=== PATIENT | female | born 1955 | race Caucasian/White ===

== ENCOUNTER → 2016-07-28 | Outpatient (CLI) | payer MEDICARE, MEDICAID ==
[2016-07-28 13:21] LABS: CALCIUM LEVEL 10.7 MG/DL (8.5-10.1); CREATININE FOR GFR 1.04 MG/DL (0.55-1.02); GLOMERULAR FILTRATION RATE 57.7 (>51); POTASSIUM SERUM 4.3 MEQ/L (3.5-5.1)
== END ==
LOC: M LAB 11:51
PROVIDERS: ATTEND Nurse Practitioner Family
DX: E11.9 Type 2 diabetes mellitus without complications (principal); E55.9 Vitamin D deficiency, unspecified

== ENCOUNTER → 2016-08-11 | Outpatient (REF) | payer MEDICARE, MEDICAID | LOC: M LAB REF 16:48 | PROVIDERS: ATTEND Nurse Practitioner Family | DX: N39.0 Urinary tract infection, site not specified (principal) ==

== ENCOUNTER → 2016-11-21 | Outpatient (CLI) | payer MEDICARE, MEDICAID ==
[2016-11-21 18:35] LABS: CALCIUM LEVEL 9.3 MG/DL (8.5-10.1); CREATININE FOR GFR 1.02 MG/DL (0.55-1.02); POTASSIUM SERUM 4.4 MEQ/L (3.5-5.1)
== END ==
LOC: M SMT 13:53
PROVIDERS: ATTEND Nurse Practitioner Family
DX: E11.9 Type 2 diabetes mellitus without complications (principal)

== ENCOUNTER 2017-03-01 20:30 | Emergency (ER) | payer MEDICARE, MEDICAID ==
[~2017-03-01] VITALS: Ht 154.9 cm; Wt 85.5 kg
[2017-03-01 20:31] VITALS: BP 182/84
[2017-03-01] MEDS ORDERED: FURO20TA2 PO (21:17)
[2017-03-01] MEDS ORDERED: LANTINJ4 (21:17)
[2017-03-01] MEDS ORDERED: CRES40TA PO (21:17)
[2017-03-01] MEDS ORDERED: METF10004 (21:17)
[2017-03-01] MEDS ORDERED: LISI40TAB PO (21:17)
[2017-03-01] MEDS ORDERED: LATA5OPD OU (21:17)
[2017-03-01] MEDS ORDERED: MACR100C43 PO (23:56)
[2017-03-01] MEDS ORDERED: PYRI1TAB5 PO (23:56)
[2017-03-02] MEDS ORDERED: NITROFURANTOIN (MACROBID) 100 MG CAP PO ONE
[2017-03-02] MEDS ORDERED: PHENAZOPYRIDINE 100 MG TAB PO ONE
== END 2017-03-02 00:11 | disposition home or self-care (01) ==
LOC: M ED 20:30
DX: N30.90 Cystitis, unspecified without hematuria (principal); F17.200 Nicotine dependence, unspecified, uncomplicated; E78.00 Pure hypercholesterolemia, unspecified; I10 Essential (primary) hypertension; Z87.440 Personal history of urinary (tract) infections; E11.9 Type 2 diabetes mellitus without complications; M19.90 Unspecified osteoarthritis, unspecified site; Z79.84 Long term (current) use of oral hypoglycemic drugs; Z79.899 Other long term (current) drug therapy; Z88.8 Allergy status to other drugs, medicaments and biological substances

== ENCOUNTER 2017-03-10 21:07 | Emergency (ER) | payer MEDICARE, MEDICAID ==
[~2017-03-10] VITALS: Ht 154.9 cm; Wt 85.5 kg
[~2017-03-10 21:07] MED LIST: CRES40TA PO; FURO20TA2 PO; LANTINJ4; LATA5OPD OU; LISI40TAB PO; MACR100C43 PO; METF10004; PYRI1TAB5 PO
[2017-03-11 03:47] VITALS: BP 136/74
[2017-03-11] MEDS ORDERED: CYCLOBENZAPRINE 10 MG TAB PO ONE (04:00)
[2017-03-11] MEDS ORDERED: NAPROXEN 250 MG TAB PO ONE (04:00)
[2017-03-11] MEDS ORDERED: CYCL10TA PO (04:03)
[2017-03-11] MEDS ORDERED: NAPR500T PO (04:03)
[2017-03-11] MEDS ORDERED: NORCO 5/325MG TABLET (BULK FOR ED) PO ONE (04:15)
--- NOTE | 2017-03-11 08:39 | REP ---
Bilateral ribs and PA chest: Bilateral ribs four views: There are no rib fractures or other rib abnormalities. PA chest: Comparison is 07/08/2006. There is no pneumothorax, hemothorax or pulmonary contusion. Lung mims are clear. Cardiac size is normal. The pedrito, mediastinum, and bony thorax are unremarkable. Impression: Negative PA chest. There is no interval change. Signed by rBian Carrasco MD 03/11/2017 08:31 A
--- NOTE | 2017-03-11 08:42 | REP ---
Lumbar spine series: Five views. History: Trauma. Comparison study: March 27, 2005. Findings: Lumbar vertebral body heights are preserved. Alignment is normal. Pedicles and posterior elements are intact. There is no evidence of spondylolysis or spondylolisthesis. There is spondylosis however with diffuse degenerative disc disease radiographically more pronounced than on the 2005 prior study. There is osteoarthritic facet narrowing and sclerosis most pronounced at L5-S1 and L4-5 bilaterally. This is also more pronounced than on the prior study. Sacrum and SI joints are intact. Visualized bowel gas pattern is unremarkable. Impression: Diffuse degenerative disc disease. Osteoarthritic facet disease at L4-5 and L5-S1. Radiographically progressed since 2004. No fracture or subluxation is seen. No traumatic abnormality noted. Signed by Robert Whittington MD 03/11/2017 09:32 A
--- NOTE | 2017-03-11 08:46 | REP ---
T-spine series: Two views. Findings: Thoracic vertebral body heights are preserved and alignment is normal. There is fairly diffuse degenerative disc disease throughout the thoracic spine. Pedicles and posterior elements are intact. No paravertebral soft-tissue mass or hematoma is seen. No fracture or collapse is seen. Impression: No traumatic abnormality noted. Diffuse degenerative disc disease. Signed by Robert Whittington MD 03/11/2017 09:33 A
== END 2017-03-11 04:15 | disposition home or self-care (01) ==
LOC: M ED 21:07
DX: M54.5 Low back pain (principal); I10 Essential (primary) hypertension; F17.210 Nicotine dependence, cigarettes, uncomplicated; Z79.899 Other long term (current) drug therapy; Z79.4 Long term (current) use of insulin; Z79.84 Long term (current) use of oral hypoglycemic drugs; Z88.8 Allergy status to other drugs, medicaments and biological substances

== ENCOUNTER 2017-03-18 13:18 | Inpatient (IN) | payer MEDICARE, MEDICAID ==
[2017-03-18] VITALS (16 sets, daily range): BP systolic 75–121; BP diastolic 39–59
[~2017-03-18] VITALS: Ht 154.9 cm; Wt 83.4 kg
[~2017-03-18 13:18] MED LIST changes: +CYCL10TA PO; +NAPR500T PO
[2017-03-18] MEDS ORDERED: CLAR10CA3 PO (13:33)
[2017-03-18] MEDS ORDERED: HUMA100I5 (13:33)
[2017-03-18] MEDS ORDERED: COLA100C5 PO (13:33)
[2017-03-18] MEDS ORDERED: AMLO10TA PO (13:33)
[2017-03-18] MEDS ORDERED: ADACEL/BOOSTRIX VACCINE (DIPHTH/PERTUSS/ACELL/TETANUS)0.5ML SYR (90715) IM ONE (14:00)
[2017-03-18] MEDS ORDERED: NS 1,000 ML IV ONE ×5 (14:00→20:00)
[2017-03-18 14:04] LABS: BASO % 0.2 % (0.0-1.0); IMMATURE GRANULOCYTE % 1.1 % (0-0); LYMPH # 2.3 10^3/uL (1.5-4.5); LYMPH % 10.4 % (24.0-44.0); MEAN CORPUSCULAR HEMOGLOBIN 27.1 pg (27.0-33.0); MEAN CORPUSCULAR HGB CONC 33.8 g/dl (32.0-36.5); MEAN CORPUSCULAR VOLUME 80.2 fl (80.0-96.0); MONO # 1.5 10^3/uL (0.0-0.8); MONO % 6.8 % (0.0-5.0); NEUTROPHILS # 17.8 10^3/uL (1.8-7.7); NEUTROPHILS % 81.5 % (36.0-66.0); PLATELET COUNT, AUTOMATED 468 10^3/uL (150-450); RED CELL DISTRIBUTION WIDTH 13.2 % (11.5-14.5); WHITE BLOOD COUNT 21.8 10^3/uL (4.0-10.0)
--- NOTE | 2017-03-18 14:15 | REP ---
Chest one-view HISTORY: Syncope Comparison: 03/11/2017 The lungs are clear. The heart is normal in size. The pulmonary vasculature is normal in appearance. Impression: No acute disease. Signed by Conrado Hester MD 03/18/2017 02:05 P
[2017-03-18 14:21] LABS: INR 1.09
[2017-03-18 14:23] LABS: ABG BASE EXCESS 18.5 (-2.0-2.0); ABG HCO3 41.7 MEQ/L (22.0-26.0); ABG PARTIAL PRESSURE O2 73.5 mmHg (75.0-100.0); ABG STANDARD HCO3 42.6 MEQ/L (22.0-26.0)
[2017-03-18 14:24] LABS: ALBUMIN 2.6 GM/DL (3.2-5.2); ALBUMIN/GLOBULIN RATIO 0.68 (1.00-1.93); BILIRUBIN,DIRECT 0.1 MG/DL (0.0-0.2); BILIRUBIN,TOTAL 0.5 MG/DL (0.2-1.0); CALCIUM LEVEL 8.9 MG/DL (8.5-10.1); CREATININE FOR GFR 3.95 MG/DL (0.55-1.02); FREE T4 1.97 NG/DL (0.76-1.46); GLOMERULAR FILTRATION RATE 12.4 (>51); MAGNESIUM LEVEL 2.1 MG/DL (1.8-2.4); POTASSIUM SERUM 3.4 MEQ/L (3.5-5.1); TOTAL PROTEIN 6.4 GM/DL (6.4-8.2)
[2017-03-18 14:25] LABS: ABG pH (ARTERIAL) 7.615 UNITS (7.350-7.450)
[2017-03-18] MEDS ORDERED: VANCOMYCIN HCL 1,000 MG, VIAL MATE ADAPTER 1 EACH in D5W 250 ML IV ONE (14:30)
[2017-03-18] MEDS ORDERED: PIPERACILLIN/TAZOBACTAM SOD 4.5 GM in D5W 50 ML IV ONE (14:30)
[2017-03-18] MEDS ORDERED: HYDROCORTISONE 100 MG/2 ML VIAL (J1720) IV ONE (14:30)
--- NOTE | 2017-03-18 15:19 | REP ---
CT Head without contrast HISTORY: Syncope COMPARISON: None There is no intraparenchymal hemorrhage, acute infarct, mass or midline shift. The ventricular system and cortical sulci as well as subarachnoid space in the posterior fossa are dilated consistent with minimal volume loss. There is no extra cerebral collection. There is no fracture. The visualized sinuses are clear. IMPRESSION: minimal volume loss. Signed by Conrado Hester MD 03/18/2017 03:10 P
[2017-03-18] MEDS ORDERED: NS 1,000 ML IV SCH (15:32)
--- NOTE | 2017-03-18 15:35 | REP ---
CT abdomen pelvis without IV or bowel contrast: There are no comparisons. The visualized lung mims are unremarkable. The unenhanced hepatic parenchyma, gallbladder, pancreas and spleen are unremarkable. The adrenals, kidneys and abdominal aorta are unremarkable except for calcified atheroma. 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 Depending on symptomatology, a CT angiogram of the aorta might be considered. There is no bowel distension or obstruction. There is no ascites. There is no pneumoperitoneum. Pelvis: There is a Singh catheter in the bladder and the bladder is collapsed and cannot be further evaluated. The uterus is tilted to the left but otherwise unremarkable. The adnexa are unremarkable. The pelvic bowel loops are unremarkable. There are soft tissue calcifications in the subcutaneous fat posterior to the sacrum of uncertain significance, possibly sequela from prior inflammation or infection. 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 Depending on symptomatology consider CT angiogram. There are soft tissue calcifications in the subcutaneous fat posterior to the sacrum, possibly from prior inflammation or infection. There is a Singh catheter in the bladder. Otherwise, negative CT of the abdomen and pelvis. Signed by Brian Carrasco MD 03/18/2017 03:23 P
[2017-03-18] MEDS ORDERED: GLUCOSE 4 GM CHEW TABLET PO PRN (15:45)
[2017-03-18] MEDS ORDERED: ACETAMINOPHEN TAB 650MG DOSE (2X325MG) PO PRN (15:45)
[2017-03-18] MEDS ORDERED: GLUCAGON FOR INJ 1 MG VIAL (J1610) SC PRN (15:45)
[2017-03-18] MEDS ORDERED: ONDANSETRON 4MG/2ML VIAL (J2405) IV PRN (15:45)
[2017-03-18] MEDS ORDERED: DEXTROSE 50% 50 ML SYRINGE IV PRN (15:45)
--- NOTE | 2017-03-18 15:52 | HPEPDOC ---
General Date of Admission Chief Complaint The patient is a 61-year-old female Presented to the ER with complaints of dizziness for 2-3 days and progressed to a fall today. History of Present Illness Patient is a 61 year old female with a PMHx of HTN, IDDM2, DLP and chronic lower back pain who presented to the ER with complaints of dizziness for 2-3 days that progressed to a fall. Patient has noted that over the last 1 week she has been experiencing nausea and vomiting. She describes the vomitus as dark colored, without evidence of blood. She has also had dysuria initially and was on antibiotics prescribed by her PCP. Today duke day number 6 of antibiotics. She denied any chest pain, palpitations, or shortness of breath. She does note a productive cough with clear sputum for the last 7 days as well. She denies any constipation, diarrhea or abdominal pain. She denies any fever or chills. She notes a poor appetite with decreased intake over the last 1 week because of the nausea and vomiting. Home Medications Scheduled Aspirin (Aspirin) 325 Mg Tab, 162.5 MG PO DAILY, (Reported) Docusate Sodium (Colace) 100 Mg Cap, 200 MG PO QHS, (Reported) Furosemide (Furosemide) 20 Mg Tab, 20 MG PO QPM, (Reported) Insulin Glargine (Lantus) 1 Units/0.01 Ml Susp, 30 UNITS SC DAILY, (Reported) Latanoprost (Latanoprost) 50 Drop/2.5 Ml Soln, 1 DROP OU QHS, (Reported) Lisinopril (Lisinopril) 40 Mg Tab, 40 MG PO DAILY, (Reported) Loratadine (Claritin) 10 Mg Cap, 10 MG PO DAILY, (Reported) Metformin Hydrochloride (Metformin HCl) 500 Mg Tab, 500 MG PO BID, (Reported) Rosuvastatin Calcium (Crestor) 40 Mg Tab, 40 MG PO QHS, (Reported) Allergies Coded Allergies: Nitrofurantoin (Verified Adverse Reaction, Unknown, 03/10/17) vomiting Past Medical History Medical History HTN, IDDM2, DLP and Chronic lower back pain Surgical History None reported Family History - Mother from [place] - Father with history of sleeping sickness Social History - Denies the use of alcohol or illicit drugs; Smoker of >45 years at 1p - Denies recent travel or sick contacts - Lives with brothers - Occupation; currently disabled, 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 Review of Symptoms Other systems Negative otherwise stated in HPI Vital Signs - Vitals: BP 95/51, HR 89, RR 16, Sat 91%RA, Temp 97.8F - General: Lying in bed, No acute distress, Speaking in full sentences, AAOx3 - HEENT: NC, AT, PERRLA, EOMI - CVS: RRR, +S1S2 - Lungs: Fair air entry bilaterally, Clear to auscultation, No wheezing / rales / rhonchi - Abdomen: Soft, Non-distended, Non-tender, Hypoactive bowel sounds - Extremities: No lower extremity edema, No calf tenderness - Neuro: No focal motor or sensory deficit - Skin: No visible rashes Laboratory Data Labs 24H Laboratory Tests 2 03/18/17 13:48: Immature Granulocyte % (Auto) 1.1H, White Blood Count 21.8H, Red Blood Count 4.20, Hemoglobin 11.4L, Hematocrit 33.7L, Mean Corpuscular Volume 80.2, Mean Corpuscular Hemoglobin 27.1, Mean Corpuscular Hemoglobin Concent 33.8, Red Cell Distribution Width 13.2, Platelet Count 468H, Neutrophils (%) (Auto) 81.5H, Lymphocytes (%) (Auto) 10.4L, Monocytes (%) (Auto) 6.8H, Eosinophils (%) (Auto) 0.0, Basophils (%) (Auto) 0.2, Neutrophils # (Auto) 17.8H, Lymphocytes # (Auto) 2.3, Monocytes # (Auto) 1.5H, Eosinophils # (Auto) 0.0, Basophils # (Auto) 0.0, Immature Granulocyte # (Auto) 0.2H, Nucleated Red Blood Cells % (auto) 0.0, Prothrombin Time 14.3, Prothromb Time International Ratio 1.09, Activated Partial Thromboplast Time 28.6, D-Dimer, Quantitative 2891.0H, Anion Gap 15, Glomerular Filtration Rate 12.4L, Lactic Acid Level 7.8*H, Calcium Level 8.9, Magnesium Level 2.1, Aspartate Amino Transf (AST/SGOT) 26, Alanine Aminotransferase (ALT/SGPT) 23, Alkaline Phosphatase 83, Total Bilirubin 0.5, Direct Bilirubin 0.1, Total Creatine Kinase 270H, Creatine Kinase MB 4.3H, Creatine Kinase MB Relative Index 1.59, Troponin I 0.13H, C-Reactive Protein, Quantitative 6.67H, Total Protein 6.4, Albumin 2.6L, Albumin/Globulin Ratio 0.68L, Amylase Level 40, Thyroid Stimulating Hormone (TSH) 1.090, Free Thyroxine 1.97H 03/18/17 14:05: Blood Gas Bicarbonate Standard 42.6H, Arterial Blood pH 7.615*H, Arterial Blood Partial Pressure CO2 42.0, Arterial Blood Partial Pressure O2 73.5L, Arterial Blood Total CO2 43.0H, Arterial Blood HCO3 41.7H, Arterial Blood Base Excess 18.5H, Arterial Blood Oxygen Saturation 95.6 03/18/17 15:05: Urine Appearance CLOUDYH, Urine Color SHIRLEY, Urine pH 5.0, Urine Specific Richards 1.020, Urine Protein 2+H, Urine Glucose (UA) 1+H, Urine Ketones TRACEH, Urine Urobilinogen 4.0H, Urine Bilirubin NEGATIVE, Urine Leukocyte Esterase TRACEH, Urine Blood 2+H, Urine Nitrite NEGATIVE, Urine WBC (Auto) 17H, Urine RBC (Auto) 7H, Urine Hyaline Casts (Auto) 54, Urine Bacteria (Auto) 2+H, Urine Squamous Epithelial Cells 4, Urine Amorphous Sediment SMALLH, Urine Mucus (Auto ) SMALL, Urine Sperm (Auto) CBC/BMP Laboratory Tests 03/18/17 13:48 Red Blood Count 4.20, Mean Corpuscular Volume 80.2, Mean Corpuscular Hemoglobin 27.1, Mean Corpuscular Hemoglobin Concent 33.8, Red Cell Distribution Width 13.2 , Neutrophils (%) (Auto) 81.5 H, Lymphocytes (%) (Auto) 10.4 L, Monocytes (%) ( Auto) 6.8 H, Eosinophils (%) (Auto) 0.0, Basophils (%) (Auto) 0.2, Neutrophils # (Auto) 17.8 H, Lymphocytes # (Auto) 2.3, Monocytes # (Auto) 1.5 H, Eosinophils # (Auto) 0.0, Basophils # (Auto) 0.0 Microbiology Microbiology 03/18/17 Blood Culture, Received Pending 03/18/17 Blood Culture, Received Pending 03/18/17 Influenza Virus Type A Antigen - Final, Complete 03/18/17 Influenza Virus Type B Antigen - Final, Complete 03/18/17 Urine Culture, Received Pending Plan / VTE VTE Prophylaxis Ordered?: Yes Plan / Urinary Catheter Reason for insertion/continuin: Critical Pt monitoring Plan Plan Hypotension possibly 2/2 hypovolemic shock, possibly 2/2 septic shock, possibly 2/2 medications - Presented with nausea and vomiting x 7 days duration - Denies any fever or chills at home, does note dysuria initially and productive cough - Has been on antibiotics as an outpatient - Physical reveals no acute findings; remains afebrile - UA with trace LE and no nitrites, 2+ bacteria - Labs reveal metabolic alkalosis (hypochloremic) 2/2 nausea and vomiting - CXR 03/18: No acute disease - CT head 03/18: no acute pathology - s/p Vancomycin and Zosyn in ER - Has been bloused with 3 liters of NS in ER - Will c/w Vancomycin and Zosyn for now - Will re-evaluate blood pressure and determine if central line is required; case was discussed by ER physician with Dr. Moran Fall at home - likely 2/2 hypotension - Denies any LOC - Imaging negative for fracture Acute kidney injury likely 2/2 pre-renal etiology 2/2 hypovolemia, possibly 2/ 2 intra-renal etiology, less likely post-renal etiology - Cr of 3.95 - Prior level of 1.02 on 11/21/16 - Will check urine electrolytes and renal US - c/w IV fluid hydration Lactic acidosis likely 2/2 hypotension - Lactic acid level of 7.8 - Will follow up lactic acid at 4 hour camille - Will c/w IV fluid hydration Metabolic alkalosis (Hypochloremic) - likely 2/2 nausea and vomiting - Will continue to follow Elevated troponin - likely 2/2 demand ischemia - Denies chest pain, SOB, or palpitations - EKG with T wave inversions in V2, no appreciable ST segment deviations - Mild elevation at 0.13 - Will trend for additional 2 sets Hyponatremia - likely 2/2 hypotonic hypovolemic - Will check serum osmolality and fractional excretion of sodium - c/w Fluid resuscitation with NS for blood pressure - Will get stat CMP at this time to follow level Hypokalemia - Will supplement HTN - Will hold BP medications at this time IDDM2 - c/w ISS - Will c/w Levemir at 20 units, reduced from 30 units of Lantus DLP - c/w Statin Chronic lower back pain - c/w Tylenol PRN Gastrointestinal prophylaxis - Will start protonix IV DVT prophylaxis - Will start Heparin EMILIE LANG MD Mar 18, 2017 15:52
[2017-03-18] MEDS ORDERED: POTASSIUM CHLORIDE 10 MEQ SR TABLET PO ONE ×3 (16:00→21:30)
[2017-03-18] MEDS ORDERED: VANCOMYCIN HCL 1,000 MG, VIAL MATE ADAPTER 1 EACH in D5W 250 ML IV SCH (16:00)
[2017-03-18] MEDS ORDERED: INSULANT SC (16:01)
[2017-03-18] MEDS ORDERED: METF500T13 PO (16:01)
[2017-03-18] MEDS ORDERED: ASPI325T PO (16:01)
--- NOTE | 2017-03-18 16:10 | REP ---
RIGHT HUMERUS, TWO VIEWS: HISTORY: Fall. There is no acute fracture or dislocation. There is narrowing of the acromioclavicular joint with associated osteophyte formation. IMPRESSION: There is no acute fracture or dislocation. Signed by Conrado Hester MD 03/18/2017 04:15 P
[2017-03-18 16:47] LABS: OSMOLALITY SERUM 289 MOSM/KG (275-295)
[2017-03-18 16:54] LABS: ALBUMIN 2.3 GM/DL (3.2-5.2); ALBUMIN/GLOBULIN RATIO 0.62 (1.00-1.93); BILIRUBIN,TOTAL 0.4 MG/DL (0.2-1.0); CREATININE FOR GFR 3.55 MG/DL (0.55-1.02)
--- NOTE | 2017-03-18 17:05 | ECGEPIP ---
Stationary ECG Study [facility] - ED Test Date: 2017-03-18 Pat Name: GARRETT KC Department: Room: - Gender: F Hr Specialist: : [id number] Requested By: Fermin Wolfe Order Number: [id number] Reading MD: Richy Doan Measurements Intervals [place] Rate: 90 P: -17 AK: 137 QRS: 54 QRSD: 89 T: 44 QT: 399 QTc: 488 Interpretive Statements SINUS RHYTHM POSSIBLE LEFT ATRIAL ENLARGEMENT POSSIBLE INFERIOR MYOCARDIAL INFARCTION, PROBABLY OLD MODERATE T-WAVE ABNORMALITY, CONSIDER ANTERIOR ISCHEMIA NO PRIORS Electronically Signed On 03-18-2017 17:05:31 EDT by Richy Doan
[2017-03-18 17:14] LABS: POTASSIUM SERUM 2.7 MEQ/L (3.5-5.1)
[2017-03-18] MEDS ORDERED: VANCOMYCIN INTERMITTENT/PULSE DOSING BY CLINICAL PHARMACIST PER DOSING PROTOCOL XX SCH (17:15)
[2017-03-18] MEDS ORDERED: HumaLOG INSULIN (NovoLOG) PER UNIT SC SCH ×2 (17:30→21:00)
[2017-03-18] MEDS: PANTOPRAZOLE 40MG INJ (PROTONIX) (C9113) IV SCH (17:35)
[2017-03-18] MEDS: KCL 40MEQ in NS 1000ML 1,000 ML IV SCH (17:35)
--- NOTE | 2017-03-18 18:33 | PHACANCOPD ---
PHARMACY VANCOMYCIN DOSING Pt Demographics Demographics Patient Age:61 , Weight:79.600 , Gender: female Adjusted Body Weight Date: 03/18/17, Adjusted Body Weight: Kg Events Past 24 Hours Events Past 24 Hours: YES: Change in CrCl, Elevation in WBC, NO: Dialysis, Diuretic Therapy, Fever, Pending Diagnostics, Pending Procedures, Other Vancomycin Vancomycin indication: SEPSIS MRSA COVERAGE Vancomycin Target Ranges: 15-20 mcg/ml Vancomycin Load Y/N: Yes Load Dose Date Time Vancomycin Load Dose: 1G Date: 03/18/17 Time: 1730 Vancomycin Dose Date: 03/18/17. Current Vancomycin Dose: Intermittent Dosing?: Yes Labs Labs Vital Signs Label Value Date Time Patient Temperature 98.4 degrees F 03/18/17 1611 Temperature Source Temporal 03/18/17 1611 Patient Temperature 98.7 degrees F 03/18/17 1638 Temperature Source Temporal 03/18/17 1638 Item Value Date Time White Blood Count 21.8 10^3/uL H 03/18/17 1348 Lactic Acid Level 7.8 MMOL/L *H 03/18/17 1348 Creatinine 3.95 MG/DL H 03/18/17 1348 Creatinine 3.55 MG/DL H 03/18/17 1608 Micro Microbiology 03/18/17 Blood Culture, Received Pending 03/18/17 Blood Culture, Received Pending 03/18/17 Influenza Virus Type A Antigen - Final, Complete 03/18/17 Influenza Virus Type B Antigen - Final, Complete 03/18/17 Urine Culture, Received Pending Creatinine Clearance Date:03/18/17. Creatinine Clearance: . Assessment and Plan Maintaining Current Dose?: Yes Reason for dose change: No Dose Change Pharmacist Note Pharmacist Note Date: 03/18/17. Pharmacist note: Pt. is a 61 year old female who presented to the ER with complaints of dizziness for 2-3 days that progressed to a fall as well as nausea and vomiting. Patient is currently in acute renal failure with Scr elevated at 3.55. Her baseline Scr is around 0.9-1. Patient was given 1G Vanco at ~1730. I have scheduled a random vanco level at 1500 tomorrow. We will continue to monitor and adjust dose as patient's kidney function improves. [facility] Mar 18, 2017 18:33
[2017-03-18] MEDS ORDERED: LR 1,000 ML IV ONE (20:00)
[2017-03-18] MEDS: ROSUVASTATIN 10 MG TAB (CRESTOR) PO SCH (21:17)
[2017-03-18] MEDS: DOCUSATE SODIUM 100 MG CAP PO SCH (21:17)
[2017-03-18] MEDS: HEPARIN SOD (PORCINE) 5000 UNITS/ML VIAL SC SCH (21:18)
[2017-03-18] MEDS: PIPERACILLIN/TAZOBACTAM SOD 3.375 GM in D5W 50 ML IV SCH (21:18)
[2017-03-18 21:58] LABS: CALCIUM LEVEL 7.8 MG/DL (8.5-10.1); CREATININE FOR GFR 3.15 MG/DL (0.55-1.02); GLOMERULAR FILTRATION RATE 16.1 (>51); MAGNESIUM LEVEL 2.1 MG/DL (1.8-2.4); POTASSIUM SERUM 3.1 MEQ/L (3.5-5.1)
--- NOTE | 2017-03-18 22:10 | REPUSA ---
Clinical history: hypoxia. Comparison: None. Findings: The mediastinum and cardiac silhouette are within normal limits. The lungs are clear. No pl eural effusion or pneumothorax is seen. The osseous structures and soft tissues are unremarkable. Impression: No acute disease.
[2017-03-19] VITALS (17 sets, daily range): BP systolic 101–161; BP diastolic 49–72
[2017-03-19 02:49] LABS: ABG BASE EXCESS 11.6 (-2.0-2.0); ABG PARTIAL PRESSURE CO2 46.3 mmHg (35.0-45.0); ABG PARTIAL PRESSURE O2 83.4 mmHg (75.0-100.0); ABG STANDARD HCO3 35.3 MEQ/L (22.0-26.0); ABG TOTAL CO2 37.4 MEQ/L (22.0-29.0); ABG pH (ARTERIAL) 7.508 UNITS (7.350-7.450)
[2017-03-19] MEDS: KCL 40MEQ in NS 1000ML 1,000 ML IV SCH ×2 (03:46→08:11)
[2017-03-19] MEDS: PIPERACILLIN/TAZOBACTAM SOD 3.375 GM in D5W 50 ML IV SCH ×4 (03:47→20:30)
[2017-03-19 05:18] LABS: BASO % 0.1 % (0.0-1.0); IMMATURE GRANULOCYTE % 0.6 % (0-0); LYMPH # 1.9 10^3/uL (1.5-4.5); LYMPH % 9.5 % (24.0-44.0); MEAN CORPUSCULAR HEMOGLOBIN 27.7 pg (27.0-33.0); MEAN CORPUSCULAR HGB CONC 33.7 g/dl (32.0-36.5); MEAN CORPUSCULAR VOLUME 82.4 fl (80.0-96.0); MONO # 1.2 10^3/uL (0.0-0.8); NEUTROPHILS % 83.8 % (36.0-66.0); PLATELET COUNT, AUTOMATED 397 10^3/uL (150-450); RED CELL DISTRIBUTION WIDTH 13.5 % (11.5-14.5); WHITE BLOOD COUNT 20.3 10^3/uL (4.0-10.0)
[2017-03-19 05:41] LABS: ALBUMIN 2.3 GM/DL (3.2-5.2); ALBUMIN/GLOBULIN RATIO 0.77 (1.00-1.93); BILIRUBIN,TOTAL 0.5 MG/DL (0.2-1.0); CALCIUM LEVEL 8.1 MG/DL (8.5-10.1); CREATININE FOR GFR 2.68 MG/DL (0.55-1.02); GLOMERULAR FILTRATION RATE 19.4 (>51); MAGNESIUM LEVEL 2.3 MG/DL (1.8-2.4); POTASSIUM SERUM 3.3 MEQ/L (3.5-5.1); TOTAL PROTEIN 5.3 GM/DL (6.4-8.2)
[2017-03-19] MEDS ORDERED: HumaLOG INSULIN (NovoLOG) PER UNIT SC SCH (06:00)
[2017-03-19] MEDS: HEPARIN SOD (PORCINE) 5000 UNITS/ML VIAL SC SCH ×3 (06:34→20:29)
[2017-03-19] MEDS ORDERED: POTASSIUM CHLORIDE 10 MEQ SR TABLET PO ONE ×2 (07:30)
[2017-03-19] MEDS ORDERED: DEXTROSE 50% 50 ML SYRINGE IV PRN ×2 (07:45→12:30)
[2017-03-19] MEDS ORDERED: GLUCOSE 4 GM CHEW TABLET PO PRN ×2 (07:45→12:30)
[2017-03-19] MEDS ORDERED: GLUCAGON FOR INJ 1 MG VIAL (J1610) SC PRN ×2 (07:45→12:30)
[2017-03-19] MEDS: ASPIRIN 325 MG TAB PO SCH (08:23)
[2017-03-19] MEDS: LEVEMIR (INSULIN DETEMIR) 1 UNITS/0.01ML SC SCH (08:24)
[2017-03-19] MEDS: HumaLOG INSULIN (NovoLOG) PER UNIT SC SCH ×3 (13:30→20:39)
[2017-03-19] MEDS ORDERED: SLF 3 ML SYR IV PRN (14:00)
[2017-03-19 15:24] LABS: CALCIUM LEVEL 8.2 MG/DL (8.5-10.1); CREATININE FOR GFR 2.29 MG/DL (0.55-1.02); GLOMERULAR FILTRATION RATE 23.2 (>51); POTASSIUM SERUM 4.4 MEQ/L (3.5-5.1)
--- NOTE | 2017-03-19 15:34 | IPNPDOC ---
Date Seen The patient was seen on 03/19/17. Progress Note Hospitalist Progress Note Subjective: Patient states that she is feeling much better and is hungry Objective: Physical Exam: Vitals: Vital Sign - Last 24 Hours 03/18/17 03/18/17 03/18/17 03/18/17 15:45 15:48 15:51 16:03 Pulse 92 90 B/P (MAP) 96/54 (68) 102/54 (70) Pulse Ox 94 95 03/18/17 03/18/17 03/18/17 03/18/17 16:10 16:11 16:38 18:30 Temp 98.4 98.7 Pulse 90 97 84 Resp 16 20 B/P (MAP) 110/58 (75) 101/50 (67) 121/59 (79) 91/47 (62) Pulse Ox 93 90 O2 Delivery Nasal Cannula Nasal Cannula O2 Flow Rate 2.0 3.0 03/18/17 03/18/17 03/18/17 03/18/17 19:00 19:02 19:18 19:30 Temp 98.5 Pulse 79 80 92 80 Resp 18 B/P (MAP) 75/39 (51) 82/44 (57) 116/56 (76) 76/40 (52) Pulse Ox 91 O2 Delivery Nasal Cannula O2 Flow Rate 3.0 03/18/17 03/18/17 03/18/17 03/18/17 19:37 19:47 20:00 20:00 Temp 98.5 Pulse 80 80 85 Resp 18 B/P (MAP) 80/42 (55) 90/51 (64) 87/46 (60) Pulse Ox 91 O2 Delivery Nasal Cannula Nasal Cannula O2 Flow Rate 4.0 3.0 03/18/17 03/18/17 03/18/17 03/18/17 20:30 21:00 21:26 22:00 Pulse 80 95 107 94 Resp 22 24 B/P (MAP) 86/46 (59) 110/51 (70) 113/53 (73) 121/53 (75) Pulse Ox 93 89 99 O2 Delivery Nasal Cannula Nasal Cannula Nasal Cannula Non-Rebreather O2 Flow Rate 4.0 4.0 5.0 03/18/17 03/18/17 03/18/17 03/19/17 22:30 23:00 23:30 00:00 Pulse 89 83 96 Resp 20 B/P (MAP) 93/44 (60) 89/49 (62) 102/51 (68) Pulse Ox 96 95 82 O2 Delivery Non-Rebreather Venturi Mask Venturi Mask Venturi Mask FiO2 50 50 50 03/19/17 03/19/17 03/19/17 03/19/17 00:00 00:30 01:00 02:00 Temp 99.8 Pulse 82 81 83 94 Resp 22 20 22 B/P (MAP) 101/49 (66) 102/50 (67) 102/54 (70) 115/55 (75) Pulse Ox 91 95 95 91 O2 Delivery Venturi Mask Venturi Mask Venturi Mask Venturi Mask FiO2 50 50 40 50 03/19/17 03/19/17 03/19/17 03/19/17 03:00 03:30 04:00 04:00 Temp 99.0 Pulse 94 86 90 Resp 20 24 20 B/P (MAP) 135/64 (87) 125/67 (86) 131/60 (83) Pulse Ox 94 92 89 O2 Delivery Venturi Mask Venturi Mask Venturi Mask Venturi Mask FiO2 50 40 40 40 03/19/17 03/19/17 03/19/17 03/19/17 05:00 06:00 07:00 08:00 Temp 98.9 Pulse 82 82 83 83 Resp 22 20 24 B/P (MAP) 135/63 (87) 129/63 (85) 148/69 (95) 156/72 (100) Pulse Ox 94 95 95 96 O2 Delivery Venturi Mask Venturi Mask Venturi Mask Venturi Mask FiO2 40 40 40 40 03/19/17 03/19/17 03/19/17 03/19/17 08:00 09:00 10:00 11:00 Pulse 82 84 75 Resp 20 B/P (MAP) 157/70 (99) 141/66 (91) 134/63 (86) Pulse Ox 94 96 96 O2 Delivery Venturi Mask Venturi Mask Nasal Cannula Nasal Cannula O2 Flow Rate 3.0 3.0 FiO2 40 40 03/19/17 03/19/17 12:00 12:00 Temp 99.2 Pulse 82 Resp 22 B/P (MAP) 124/60 (81) Pulse Ox 90 O2 Delivery Nasal Cannula Nasal Cannula O2 Flow Rate 3.0 3.0 General: Awake, alert, no acute distress HEENT: Normal cephalic, atraumatic, extraocular movements intact CV: Regular rate and rhythm Lungs: Clear to auscultation bilaterally Abd: Soft, tender to palpation in the umbilicus and epigastrium, no rebound or guarding Extremities: No edema Neuro: Alert and oriented 3, normal speech Psych: Normal mood and affect Labs and Imaging: Laboratory Tests 03/18/17 16:08 Calcium Level 8.0 L, Aspartate Amino Transf (AST/SGOT) 22, Alanine Aminotransferase (ALT/SGPT) 20, Alkaline Phosphatase 71, Total Bilirubin 0.4, Total Protein 6.0 L, Albumin 2.3 L 03/18/17 21:06 Calcium Level 7.8 L, Total Creatine Kinase 347 H 03/19/17 05:04 Calcium Level 8.1 L, Aspartate Amino Transf (AST/SGOT) 31, Alanine Aminotransferase (ALT/SGPT) 21, Alkaline Phosphatase 69, Total Bilirubin 0.5, Total Protein 5.3 L, Albumin 2.3 L, Red Blood Count 3.75 L, Mean Corpuscular Volume 82.4, Mean Corpuscular Hemoglobin 27.7, Mean Corpuscular Hemoglobin Concent 33.7, Red Cell Distribution Width 13.5, Neutrophils (%) (Auto) 83.8 H, Lymphocytes (%) (Auto) 9.5 L, Monocytes (%) (Auto) 6.0 H, Eosinophils (%) (Auto ) 0.0, Basophils (%) (Auto) 0.1, Neutrophils # (Auto) 17.0 H, Lymphocytes # ( Auto) 1.9, Monocytes # (Auto) 1.2 H, Eosinophils # (Auto) 0.0, Basophils # (Auto ) 0.0 03/19/17 14:44 Calcium Level 8.2 L Assessment and Plan: 61-year-old female with hypertension, diabetes mellitus type 2, hyperlipidemia, chronic low back pain who presented to the emergency department with dizziness, vomiting, and a fall. She is admitted with hypovolemic shock, metabolic alkalosis, hyponatremia, acute kidney injury. 1. Hypovolemic shock: Now mostly resolved. Patient's blood pressure has recovered. I believe this is secondary to her vomiting. Continue IV fluids. 2. Non-anion gap Metabolic alkalosis: Secondary to dehydration and contraction. Now resolving. Continue to monitor. Continue IV fluids. 3. Leukocytosis: WBC upon presentation was 21.8. I suspect this is a combination of volume contraction as well as a reactive process. The patient has been afebrile, and I do not believe that she currently has an infection. However, given the severity of her presentation, we will continue vancomycin and Zosyn until all cultures have resulted out. Urine culture is currently negative, but blood cultures are still pending. 4. Hyponatremia: Secondary to volume depletion. This is improving, we will continue to follow sodiums and continue IV fluids. 5. Acute kidney injury: This is secondary to hypovolemic shock: Creatinine upon presentation was 3.95. This has now improved to 2.29, and we will continue IV fluids. Holding home SEGRE inhibitor, Lasix, and metformin. 6. Elevated d-dimer: This could be secondary to a variety of her above mentioned issues, but given that she does report some shortness of breath, we will check a bilateral lower extremity Doppler, as well as a VQ scan to rule out any VTE. Unfortunately, given her kidney function, we cannot conduct a CTA of the chest. 7. Elevated troponin: The patient does not endorse any chest pain, and her EKG does not show evidence of acute infarct or ischemia. However, her troponin has been mildly elevated up to 0.15, and now downtrending. I suspect that this is secondary to strain from the hypovolemic shock. We will continue to monitor the patient closely for any development of chest pain. 8. Vomiting: This has now resolved. The patient is hungry and would like to eat. We will start her on a clear diet and advance her slowly. 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 Unfortunately, given the patient's kidney function, we cannot get a CTA at this time. The patient does report to me that she has been having vomiting on and off for 2 months, and this is accompanied by abdominal pain that is worse after she eats. I'm suspicious for chronic mesenteric ischemia, and I will consult vascular surgery for further evaluation. I do not believe that she has any acute ischemia or bowel, as she clinically is currently very well-appearing, does not have any rebound or guarding on her exam , and a repeat lactate was normal. LFTs are within normal limits. 9. Hypertension: Given the initial hypovolemic shock, we are currently holding the patient's home Lasix and SERGE inhibitor. 10. Diabetes mellitus type 2: Continue the patient's home long-acting insulin. She usually takes 30 units daily, but given that she is currently on only a clears diet, we have cut her back to 20 units daily. Sliding scale insulin while in-house. Currently holding home metformin. 11. Hyperlipidemia: Continue home statin. DVT prophylaxis: Heparin; also, given that the patient is critically ill, she has IV Protonix for GI prophylaxis Dispo: pending improvement in kidney function, results of cultures, and evaluation by vascular surgery VS, I&O, 24H, [facility] Vital Signs/I&O Vital Signs Date Time Temp Pulse Resp B/P (MAP) Pulse Ox O2 Delivery O2 Flow Rate FiO2 03/19/17 12:00 Nasal Cannula 3.0 03/19/17 12:00 99.2 82 22 124/60 (81) 90 03/19/17 09:00 40 I&O- Last 24 Hours up to 6 AM 03/20/17 05:59 Intake Total 1540 ml Output Total 1250 ml Balance 290 ml Laboratory Data 24H LABS Laboratory Tests 2 03/18/17 16:08: Anion Gap 10, Glomerular Filtration Rate 14.0L, Osmolality 289, Blood Urea Nitrogen 57H, Creatinine 3.55H, Sodium Level 130L, Potassium Level 2.7#*L, Chloride Level 79L, Carbon Dioxide Level 41H, Calcium Level 8.0L, Aspartate Amino Transf (AST/SGOT) 22, Alanine Aminotransferase (ALT/SGPT) 20, Alkaline Phosphatase 71, Total Bilirubin 0.4, Total Protein 6.0L, Albumin 2.3L, Total Creatine Kinase 366H, Creatine Kinase MB 7.8H, Creatine Kinase MB Relative Index 2.13, Troponin I 0.15H, Albumin/Globulin Ratio 0.62L 03/18/17 18:08: Lactic Acid Followup at 4 Hours 1.9 03/18/17 21:06: Anion Gap 9, Glomerular Filtration Rate 16.1L, Blood Urea Nitrogen 60H, Creatinine 3.15H, Sodium Level 130L, Potassium Level 3.1L, Chloride Level 83L, Carbon Dioxide Level 38H, Calcium Level 7.8L, Total Creatine Kinase 347H, Creatine Kinase MB 6.5H, Creatine Kinase MB Relative Index 1.87, Troponin I 0.13H, Bedside Glucose (Misc Panel) 154H, Lactic Acid Level 2.0, Magnesium Level 2.1 03/19/17 02:36: Blood Gas Bicarbonate Standard 35.3H, Arterial Blood pH 7.508H, Arterial Blood Partial Pressure CO2 46.3H, Arterial Blood Partial Pressure O2 83.4, Arterial Blood Total CO2 37.4H, Arterial Blood HCO3 36.0H, Arterial Blood Base Excess 11.6H, Arterial Blood Oxygen Saturation 96.0 03/19/17 05:04: Immature Granulocyte % (Auto) 0.6H, White Blood Count 20.3H, Red Blood Count 3.75L, Hemoglobin 10.4L, Hematocrit 30.9L, Mean Corpuscular Volume 82.4, Mean Corpuscular Hemoglobin 27.7, Mean Corpuscular Hemoglobin Concent 33.7, Red Cell Distribution Width 13.5, Platelet Count 397, Neutrophils (%) (Auto) 83.8H, Lymphocytes (%) (Auto) 9.5L, Monocytes (%) (Auto) 6.0H, Eosinophils (%) (Auto) 0.0, Basophils (%) (Auto) 0.1, Neutrophils # (Auto) 17.0H, Lymphocytes # (Auto) 1.9, Monocytes # (Auto) 1.2H, Eosinophils # (Auto) 0.0, Basophils # (Auto) 0.0, Immature Granulocyte # (Auto) 0.1H, Nucleated Red Blood Cells % (auto) 0.0, Anion Gap 10, Glomerular Filtration Rate 19.4L, Blood Urea Nitrogen 53H, Creatinine 2.68H, Sodium Level 133L, Potassium Level 3.3L, Chloride Level 88L, Carbon Dioxide Level 35H, Calcium Level 8.1L, Aspartate Amino Transf (AST/SGOT) 31, Alanine Aminotransferase (ALT/SGPT) 21, Alkaline Phosphatase 69, Total Bilirubin 0.5, Total Protein 5.3L, Albumin 2.3L, Magnesium Level 2.3, Total Creatine Kinase 364H, Creatine Kinase MB 5.6H, Creatine Kinase MB Relative Index 1.53, Troponin I 0.15H, Albumin/Globulin Ratio 0.77L 03/19/17 12:13: Bedside Glucose (Misc Panel) 123H 03/19/17 14:44: Anion Gap 6L, Glomerular Filtration Rate 23.2L, Blood Urea Nitrogen 40H, Creatinine 2.29H, Sodium Level 136, Potassium Level 4.4#, Chloride Level 98, Carbon Dioxide Level 32, Calcium Level 8.2L, Total Creatine Kinase 274H, Creatine Kinase MB 4.1H, Creatine Kinase MB Relative Index 1.49, Troponin I 0.10 #, Myoglobin 262H, Random Vancomycin Level 8.0 CBC/BMP Laboratory Tests 03/18/17 16:08 Calcium Level 8.0 L, Aspartate Amino Transf (AST/SGOT) 22, Alanine Aminotransferase (ALT/SGPT) 20, Alkaline Phosphatase 71, Total Bilirubin 0.4, Total Protein 6.0 L, Albumin 2.3 L 03/18/17 21:06 Calcium Level 7.8 L, Total Creatine Kinase 347 H 03/19/17 05:04 Calcium Level 8.1 L, Aspartate Amino Transf (AST/SGOT) 31, Alanine Aminotransferase (ALT/SGPT) 21, Alkaline Phosphatase 69, Total Bilirubin 0.5, Total Protein 5.3 L, Albumin 2.3 L, Red Blood Count 3.75 L, Mean Corpuscular Volume 82.4, Mean Corpuscular Hemoglobin 27.7, Mean Corpuscular Hemoglobin Concent 33.7, Red Cell Distribution Width 13.5, Neutrophils (%) (Auto) 83.8 H, Lymphocytes (%) (Auto) 9.5 L, Monocytes (%) (Auto) 6.0 H, Eosinophils (%) (Auto ) 0.0, Basophils (%) (Auto) 0.1, Neutrophils # (Auto) 17.0 H, Lymphocytes # ( Auto) 1.9, Monocytes # (Auto) 1.2 H, Eosinophils # (Auto) 0.0, Basophils # (Auto ) 0.0 03/19/17 14:44 Calcium Level 8.2 L Microbiology Microbiology 03/18/17 Blood Culture - Preliminary, Resulted No growth after 24 hours . All specim... 03/18/17 Blood Culture - Preliminary, Resulted No growth after 24 hours . All specim... 03/18/17 Influenza Virus Type A Antigen - Final, Complete 03/18/17 Influenza Virus Type B Antigen - Final, Complete 03/18/17 Urine Culture - Final, Complete 03/18/17 Urine Culture, Received Pending YO HYATT Mar 19, 2017 15:34
--- NOTE | 2017-03-19 15:39 | REP ---
Ventilation-perfusion lung scan: History: Elevated D-dimer. Shortness of breath. Comparison chest x-ray is from March 18, 2017. Technique: 1.0 mCi technetium 99m DTPA aerosol is utilized for the ventilation study and is followed by a 5.4 mCi dose of intravenous technetium 99m MAA. Eight planar images are acquired for each portion of the study. Scintigraphic findings: There is central bronchial deposition of inspired ventilatory tracer in the right hilus region. There is virtually absent ventilatory tracer uptake in any of the left lung. There is markedly impaired, but globally impaired perfusion to the left lung. There is a matched ventilation perfusion defect in the right lung anteriorly. No mismatched defect is seen. Impression: Globally diminished ventilatory and perfusion activity in the left lung. Matched right lung defect. Low probability pattern for pulmonary embolus. Question bronchial obstruction versus malignancy. Chest CT study recommended. Signed by Robert Whittington MD 03/19/2017 05:13 P
[2017-03-19] MEDS ORDERED: VANCOMYCIN HCL 1,000 MG, VIAL MATE ADAPTER 1 EACH in D5W 250 ML IV SCH (15:45)
[2017-03-19] MEDS ORDERED: VANCOMYCIN HCL 1,000 MG, VIAL MATE ADAPTER 1 EACH in D5W 250 ML IV ONE (16:00)
[2017-03-19] MEDS: SLF 3 ML SYR IV SCH ×2 (16:56→20:30)
[2017-03-19] MEDS: NS 1,000 ML IV SCH (16:56)
--- NOTE | 2017-03-19 16:58 | REP ---
Renal ultrasound: The kidneys are normal size. The right kidney measures 12.5 x 7.8 x 4.9 cm. The left kidney measures 11.2 x 5.5 x 5.4 cm. Renal cortical echogenicity is normal bilaterally. There is no hydronephrosis on the right or the left. There are no solid or cystic renal masses. There are no renal calculi. Impression: Normal renal ultrasound. There is no hydronephrosis. Bladder ultrasound: There is a Singh catheter in the bladder is collapsed and cannot be evaluated by ultrasound at this time. Signed by Brian Carrasco MD 03/19/2017 04:49 P
[2017-03-19] MEDS: PANTOPRAZOLE 40MG INJ (PROTONIX) (C9113) IV SCH (17:10)
--- NOTE | 2017-03-19 17:22 | REP ---
Duplex extremity venous ultrasound: Bilateral lower extremity. History: Elevated D-dimer. Findings: The deep veins are anechoic and fully compressible from the groin to the popliteal fossa in the right and left lower extremity. Color flow imaging is homogeneous. Spectral Doppler interrogation demonstrates intact respiratory variation in flow and normal manual augmentation of flow. There is no evidence of deep vein thrombosis. Impression: Negative bilateral lower extremity duplex venous ultrasound. No evidence of deep vein thrombosis. 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 Each of these measures 4.9 cm in greatest diameter. Signed by Robert Whittington MD 03/20/2017 02:37 P
[2017-03-19] MEDS: DOCUSATE SODIUM 100 MG CAP PO SCH (20:29)
[2017-03-19] MEDS: ROSUVASTATIN 10 MG TAB (CRESTOR) PO SCH (20:29)
--- NOTE | 2017-03-19 22:45 | ECHO ---
DATE OF PROCEDURE: 03/19/2017 REFERRING PHYSICIAN: Aguilar Lama MD INDICATION: Sepsis. HEIGHT: 155 cm WEIGHT: 85 kg DIMENSIONS: IVS: 1.1 LV: 3.5 LVPW: 1.1 LA: 3.4 Aorta: 2.9 FINDINGS: The study is of acceptable technical quality. Left ventricle is of normal size and systolic function, estimated left ventricular ejection fraction (LVEF) 70-75%. Right ventricle also appears normal. Both atria appear grossly normal as well. Aortic valve is mildly sclerotic, but has normal mobility. It has three cusps. There are also mild degenerative abnormalities of mitral valve. Tricuspid valve appears normal. Pulmonic valve was poorly visualized. No pericardial effusion is noted. Inferior vena cava is normal size. Aortic root appears normal. Aortic arch and abdominal aorta were not well seen. There is left pleural effusion. Doppler interrogation of aortic valve reveals no significant stenosis or insufficiency. There is also no significant mitral stenosis or insufficiency. Mild tricuspid insufficiency seen. Calculated pulmonary artery pressure is at least in high 40s corresponding to at minimum moderate pulmonary hypertension. Pulmonic valve is functionally competent. Mitral inflow pattern and tissue Doppler imaging of mitral annulus reveal grade 1 diastolic dysfunction. CONCLUSION: 1. Study is of acceptable technical quality. 2. Normal LV size, hyperdynamic LV systolic function and grade 1 diastolic dysfunction. 3. No significant valvular disease. 4. Likely normal central venous pressure, but at least moderate pulmonary hypertension. COMMENT: Subacute bacterial endocarditis (SBE) prophylaxis is not recommended.
[2017-03-20] VITALS (9 sets, daily range): BP systolic 124–173; BP diastolic 60–77
[2017-03-20] MEDS: PIPERACILLIN/TAZOBACTAM SOD 3.375 GM in D5W 50 ML IV SCH ×4 (02:03→21:14)
[2017-03-20] MEDS: NS 1,000 ML IV SCH ×2 (04:02→13:32)
[2017-03-20 04:58] LABS: BASO % 0.2 % (0.0-1.0); EOS # 0.1 10^3/uL (0.0-0.50); EOS % 0.7 % (0.0-3.0); IMMATURE GRANULOCYTE % 0.6 % (0-0); LYMPH % 20.1 % (24.0-44.0); MEAN CORPUSCULAR HEMOGLOBIN 26.8 pg (27.0-33.0); MEAN CORPUSCULAR HGB CONC 31.4 g/dl (32.0-36.5); MEAN CORPUSCULAR VOLUME 85.3 fl (80.0-96.0); MONO % 6.7 % (0.0-5.0); NEUTROPHILS # 10.7 10^3/uL (1.8-7.7); NEUTROPHILS % 71.7 % (36.0-66.0); PLATELET COUNT, AUTOMATED 377 10^3/uL (150-450); RED CELL DISTRIBUTION WIDTH 13.5 % (11.5-14.5)
[2017-03-20] MEDS: SLF 3 ML SYR IV SCH ×3 (05:14→21:13)
[2017-03-20] MEDS: HEPARIN SOD (PORCINE) 5000 UNITS/ML VIAL SC SCH ×3 (05:18→21:14)
[2017-03-20 05:25] LABS: ALBUMIN 2.1 GM/DL (3.2-5.2); ALBUMIN/GLOBULIN RATIO 0.53 (1.00-1.93); BILIRUBIN,TOTAL 0.3 MG/DL (0.2-1.0); CALCIUM LEVEL 8.1 MG/DL (8.5-10.1); CREATININE FOR GFR 1.62 MG/DL (0.55-1.02); GLOMERULAR FILTRATION RATE 34.6 (>51); MAGNESIUM LEVEL 2.1 MG/DL (1.8-2.4); POTASSIUM SERUM 4.6 MEQ/L (3.5-5.1); TOTAL PROTEIN 6.1 GM/DL (6.4-8.2)
[2017-03-20] MEDS: ASPIRIN 325 MG TAB PO SCH (08:13)
[2017-03-20] MEDS: HumaLOG INSULIN (NovoLOG) PER UNIT SC SCH ×4 (08:14→20:30)
[2017-03-20] MEDS: LEVEMIR (INSULIN DETEMIR) 1 UNITS/0.01ML SC SCH (08:14)
--- NOTE | 2017-03-20 14:34 | REP ---
REPEAT DICTATION RIGHT SHOULDER SERIES: Two views. HISTORY: Injury in a fall. FINDINGS: Internal and external rotation AP views of the right shoulder demonstrate advanced diffuse osteopenia. There is osteoarthritic hypertrophy at the AC joint. Normal alignment is seen. No fracture is noted. There is mild glenohumeral spurring. IMPRESSION: No fracture noted. Osteoarthritic changes and diffuse osteopenia. Signed by Robert Whittington MD 03/20/2017 03:15 P
--- NOTE | 2017-03-20 14:35 | IPNPDOC ---
Date Seen The patient was seen on 03/20/17. Progress Note Hospitalist Progress Note Subjective: Patient states that she is feeling much better and is hungry; she still has pain in her abd after eating the clears Objective: Physical Exam: Vitals: Vital Sign - Last 24 Hours 03/19/17 03/19/17 03/19/17 03/19/17 16:51 17:14 20:00 20:00 Temp 99.1 98.4 Pulse 87 90 Resp 20 29 B/P (MAP) 159/65 (96) 161/69 (99) Pulse Ox 91 96 O2 Delivery Nasal Cannula Nasal Cannula Nasal Cannula Nasal Cannula O2 Flow Rate 3.0 3.0 3.0 3.0 03/19/17 03/20/17 03/20/17 03/20/17 22:00 00:00 00:00 04:00 Temp 98.2 98.0 Pulse 86 85 Resp 28 30 B/P (MAP) 145/66 (92) 140/73 (95) Pulse Ox 97 96 O2 Delivery Nasal Cannula Nasal Cannula Nasal Cannula Nasal Cannula O2 Flow Rate 3.0 3.0 3.0 3.0 03/20/17 03/20/17 03/20/17 03/20/17 04:00 06:00 07:30 07:45 Pulse Ox 97 O2 Delivery Nasal Cannula Nasal Cannula Nasal Cannula Nasal Cannula O2 Flow Rate 3.0 3.0 3.0 2.0 03/20/17 03/20/17 03/20/17 03/20/17 07:45 07:48 08:13 10:00 Temp 97.3 Pulse 96 Resp 26 24 B/P (MAP) 173/75 (107) 138/75 (96) Pulse Ox 87 91 O2 Delivery Room Air Nasal Cannula Room Air O2 Flow Rate 2.0 03/20/17 03/20/17 03/20/17 10:15 11:46 12:00 Temp 98.1 Pulse 80 Resp 22 B/P (MAP) 124/60 (81) Pulse Ox 94 95 O2 Delivery Room Air Room Air Room Air General: Awake, alert, no acute distress HEENT: Normal cephalic, atraumatic, extraocular movements intact CV: Regular rate and rhythm Lungs: Clear to auscultation bilaterally Abd: Soft, tender to palpation in the umbilicus and epigastrium, no rebound or guarding Extremities: No edema in BLE; RUE with intact radial pulse, 5/5 distal fish net maker strength but decreased ability to lift against gravity Neuro: Alert and oriented 3, normal speech Psych: Normal mood and affect Labs and Imaging: Laboratory Tests 03/19/17 14:44 Calcium Level 8.2 L 03/20/17 04:44 Calcium Level 8.1 L, Red Blood Count 3.88 L, Mean Corpuscular Volume 85.3, Mean Corpuscular Hemoglobin 26.8 L, Mean Corpuscular Hemoglobin Concent 31.4 L, Red Cell Distribution Width 13.5, Neutrophils (%) (Auto) 71.7 H, Lymphocytes (%) ( Auto) 20.1 L, Monocytes (%) (Auto) 6.7 H, Eosinophils (%) (Auto) 0.7, Basophils (%) (Auto) 0.2, Neutrophils # (Auto) 10.7 H, Lymphocytes # (Auto) 3.0, Monocytes # (Auto) 1.0 H, Eosinophils # (Auto) 0.1, Basophils # (Auto) 0.0, Aspartate Amino Transf (AST/SGOT) 19, Alanine Aminotransferase (ALT/SGPT) 20, Alkaline Phosphatase 71, Total Bilirubin 0.3, Total Protein 6.1 L, Albumin 2.1 L Assessment and Plan: 61-year-old female with hypertension, diabetes mellitus type 2, hyperlipidemia, chronic low back pain who presented to the emergency department with dizziness, vomiting, and a fall. She is admitted with hypovolemic shock, metabolic alkalosis, hyponatremia, acute kidney injury. 1. Hypovolemic shock: Now resolved. Patient's blood pressure has recovered. I believe this is secondary to her vomiting. Continue IV fluids. 2. Non-anion gap Metabolic alkalosis: Secondary to dehydration and contraction. Now resolved. Continue to monitor. Continue IV fluids. 3. Leukocytosis: WBC upon presentation was 21.8. I suspect this is a combination of volume contraction as well as a reactive process. The patient has been afebrile, and I do not believe that she currently has an infection. However, given the severity of her presentation, we will continue vancomycin and Zosyn until all cultures have resulted out. Urine culture is currently negative, but blood cultures are still pending. 4. Hyponatremia: Secondary to volume depletion. This is resolved. 5. Acute kidney injury: This is secondary to hypovolemic shock: Creatinine upon presentation was 3.95. This has now improved to 1.62, and we will continue IV fluids. Holding home SERGE inhibitor, Lasix, and metformin. 6. Elevated d-dimer: This could be secondary to a variety of her above mentioned issues, but given that she reported some shortness of breath, we checked a bilateral lower extremity Doppler, which was negative for DVT, as well as a VQ scan, which was negative for PE. Unfortunately, given her kidney function, we cannot conduct a CTA of the chest. 7. Elevated troponin: The patient does not endorse any chest pain, and her EKG does not show evidence of acute infarct or ischemia. However, her troponin was mildly elevated up to 0.15, and now downtrending. I suspect that this is secondary to strain from the hypovolemic shock. We will continue to monitor the patient closely for any development of chest pain. 8. Vomiting: This has now resolved. The patient is hungry and would like to eat. We will advance her diet. 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 Unfortunately, given the patient's kidney function, we cannot get a CTA at this time. The patient does report to me that she has been having vomiting on and off for 2 months, and this is accompanied by abdominal pain that is worse after she eats. I'm suspicious for chronic mesenteric ischemia, and I consulted vascular surgery for further evaluation. They are planning for angiogram in the angiosuite on Thursday. I do not believe that she has any acute ischemia or bowel, as she clinically is currently very well-appearing, does not have any rebound or guarding on her exam, and a repeat lactate was normal. LFTs are within normal limits. 9. Hypertension: Given the initial hypovolemic shock, we are currently holding the patient's home Lasix and SERGE inhibitor. 10. Diabetes mellitus type 2: Continue the patient's home long-acting insulin. She usually takes 30 units daily, but given that we are advancing her up to a normal diet, we have cut her back to 20 units daily. Sliding scale insulin while in-house. Currently holding home metformin. 11. Hyperlipidemia: Continue home statin. 12. Right shoulder pain: Present after patient fell. Reading of shoulder film still pending. Spoke to radiology who will ensure this gets read. 13. Abnormal finding on V/Q scan: While there is low probability for PE, there is concern for obstruction or malignancy. When her kidneys have improved a bit more, will assess with CT Chest with contrast. DVT prophylaxis: Heparin Dispo: pending improvement in kidney function, results of cultures, and evaluation by vascular surgery VS, I&O, 24H, Fishbone Vital Signs/I&O Vital Signs Date Time Temp Pulse Resp B/P (MAP) Pulse Ox O2 Delivery O2 Flow Rate FiO2 03/20/17 12:00 Room Air 03/20/17 11:46 98.1 80 22 124/60 (81) 95 03/20/17 07:48 2.0 03/19/17 09:00 40 I&O- Last 24 Hours up to 6 AM 03/21/17 06:00 Intake Total 1175 ml Output Total 550 ml Balance 625 ml Laboratory Data 24H LABS Laboratory Tests 2 03/19/17 14:44: Anion Gap 6L, Glomerular Filtration Rate 23.2L, Blood Urea Nitrogen 40H, Creatinine 2.29H, Sodium Level 136, Potassium Level 4.4#, Chloride Level 98, Carbon Dioxide Level 32, Calcium Level 8.2L, Total Creatine Kinase 274H, Creatine Kinase MB 4.1H, Creatine Kinase MB Relative Index 1.49, Myoglobin 262H , Troponin I 0.10#, Random Vancomycin Level 8.0 03/19/17 17:05: Bedside Glucose (Misc Panel) 128H 03/19/17 20:39: Bedside Glucose (Misc Panel) 183H 03/20/17 04:44: Anion Gap 6L, Glomerular Filtration Rate 34.6L, Blood Urea Nitrogen 24H, Creatinine 1.62H, Sodium Level 135L, Potassium Level 4.6, Chloride Level 104, Carbon Dioxide Level 25, Calcium Level 8.1L, Immature Granulocyte % (Auto) 0.6H , White Blood Count 15.0H, Red Blood Count 3.88L, Hemoglobin 10.4L, Hematocrit 33.1L, Mean Corpuscular Volume 85.3, Mean Corpuscular Hemoglobin 26.8L, Mean Corpuscular Hemoglobin Concent 31.4L, Red Cell Distribution Width 13.5, Platelet Count 377, Neutrophils (%) (Auto) 71.7H, Lymphocytes (%) (Auto) 20.1L, Monocytes (%) (Auto) 6.7H, Eosinophils (%) (Auto) 0.7, Basophils (%) (Auto) 0.2 , Neutrophils # (Auto) 10.7H, Lymphocytes # (Auto) 3.0, Monocytes # (Auto) 1.0H , Eosinophils # (Auto) 0.1, Basophils # (Auto) 0.0, Immature Granulocyte # (Auto ) 0.1H, Nucleated Red Blood Cells % (auto) 0.0, Aspartate Amino Transf (AST/SGOT ) 19, Alanine Aminotransferase (ALT/SGPT) 20, Alkaline Phosphatase 71, Total Bilirubin 0.3, Total Protein 6.1L, Albumin 2.1L, Magnesium Level 2.1, Albumin/ Globulin Ratio 0.53L 03/20/17 12:03: Bedside Glucose (Misc Panel) 160H CBC/BMP Laboratory Tests 03/19/17 14:44 Calcium Level 8.2 L 03/20/17 04:44 Calcium Level 8.1 L, Red Blood Count 3.88 L, Mean Corpuscular Volume 85.3, Mean Corpuscular Hemoglobin 26.8 L, Mean Corpuscular Hemoglobin Concent 31.4 L, Red Cell Distribution Width 13.5, Neutrophils (%) (Auto) 71.7 H, Lymphocytes (%) ( Auto) 20.1 L, Monocytes (%) (Auto) 6.7 H, Eosinophils (%) (Auto) 0.7, Basophils (%) (Auto) 0.2, Neutrophils # (Auto) 10.7 H, Lymphocytes # (Auto) 3.0, Monocytes # (Auto) 1.0 H, Eosinophils # (Auto) 0.1, Basophils # (Auto) 0.0, Aspartate Amino Transf (AST/SGOT) 19, Alanine Aminotransferase (ALT/SGPT) 20, Alkaline Phosphatase 71, Total Bilirubin 0.3, Total Protein 6.1 L, Albumin 2.1 L Microbiology Microbiology 03/18/17 Blood Culture - Preliminary, Resulted No growth after 24 hours . All specim... 03/18/17 Blood Culture - Preliminary, Resulted No growth after 24 hours . All specim... 03/18/17 Influenza Virus Type A Antigen - Final, Complete 03/18/17 Influenza Virus Type B Antigen - Final, Complete 03/18/17 Urine Culture - Final, Complete 03/18/17 Urine Culture - Final, Complete YO HYATT Mar 20, 2017 14:35
[2017-03-20] MEDS: PANTOPRAZOLE 40MG INJ (PROTONIX) (C9113) IV SCH (17:29)
[2017-03-20] MEDS: ROSUVASTATIN 10 MG TAB (CRESTOR) PO SCH (21:14)
[2017-03-20] MEDS: DOCUSATE SODIUM 100 MG CAP PO SCH (21:15)
[2017-03-21] MEDS: PIPERACILLIN/TAZOBACTAM SOD 3.375 GM in D5W 50 ML IV SCH (03:36)
[2017-03-21] MEDS: NS 1,000 ML IV SCH (03:37)
[2017-03-21 05:00] VITALS: BP 145/84
[2017-03-21 05:55] LABS: BASO # 0.1 10^3/uL (0.0-0.2); BASO % 0.4 % (0.0-1.0); EOS # 0.1 10^3/uL (0.0-0.50); EOS % 0.4 % (0.0-3.0); IMMATURE GRANULOCYTE % 0.6 % (0-0); LYMPH # 2.6 10^3/uL (1.5-4.5); LYMPH % 20.6 % (24.0-44.0); MEAN CORPUSCULAR HEMOGLOBIN 27.3 pg (27.0-33.0); MEAN CORPUSCULAR VOLUME 85.2 fl (80.0-96.0); MONO # 0.8 10^3/uL (0.0-0.8); MONO % 6.4 % (0.0-5.0); NEUTROPHILS # 9.1 10^3/uL (1.8-7.7); NEUTROPHILS % 71.6 % (36.0-66.0); PLATELET COUNT, AUTOMATED 353 10^3/uL (150-450); RED CELL DISTRIBUTION WIDTH 13.3 % (11.5-14.5); WHITE BLOOD COUNT 12.7 10^3/uL (4.0-10.0)
[2017-03-21] MEDS: SLF 3 ML SYR IV SCH ×3 (06:00→21:40)
[2017-03-21] MEDS: HEPARIN SOD (PORCINE) 5000 UNITS/ML VIAL SC SCH ×3 (06:13→21:39)
[2017-03-21 06:18] LABS: ALBUMIN 2.1 GM/DL (3.2-5.2); ALBUMIN/GLOBULIN RATIO 0.54 (1.00-1.93); BILIRUBIN,TOTAL 0.3 MG/DL (0.2-1.0); CALCIUM LEVEL 8.2 MG/DL (8.5-10.1); CREATININE FOR GFR 1.31 MG/DL (0.55-1.02); GLOMERULAR FILTRATION RATE 44.2 (>51); MAGNESIUM LEVEL 1.9 MG/DL (1.8-2.4); POTASSIUM SERUM 4.5 MEQ/L (3.5-5.1)
[2017-03-21] MEDS: HumaLOG INSULIN (NovoLOG) PER UNIT SC SCH ×4 (07:30→21:00)
[2017-03-21] MEDS: ASPIRIN 325 MG TAB PO SCH (08:23)
[2017-03-21] MEDS: LEVEMIR (INSULIN DETEMIR) 1 UNITS/0.01ML SC SCH (09:00)
[2017-03-21 14:00] VITALS: BP 112/62
--- NOTE | 2017-03-21 14:20 | IPNPDOC ---
Date Seen The patient was seen on 03/21/17. Progress Note Hospitalist Progress Note Subjective: Patient states that she is doing well with her diet; no vomiting; continues to have pain in right shoulder and cannot lift that arm without using her left hand Objective: Physical Exam: Vitals: Vital Sign - Last 24 Hours 03/20/17 03/20/17 03/20/17 03/20/17 16:00 16:00 17:00 17:15 Temp 98.1 97.1 Pulse 82 91 Resp 20 20 B/P (MAP) 128/61 (83) 157/77 (103) Pulse Ox 93 93 O2 Delivery Room Air Room Air Room Air 03/20/17 03/20/17 03/21/17 19:45 21:15 05:00 Temp 97.0 97.3 Pulse 79 79 Resp 18 18 B/P (MAP) 141/76 (97) 145/84 (104) Pulse Ox 96 94 O2 Delivery Room Air Room Air Room Air General: Awake, alert, no acute distress HEENT: Normal cephalic, atraumatic, extraocular movements intact CV: Regular rate and rhythm Lungs: Clear to auscultation bilaterally Abd: Soft, no TTP, no rebound or guarding Extremities: No edema in BLE; RUE with intact radial pulse, 5/5 distal scientific director strength but decreased ability to lift against gravity Neuro: Alert and oriented 3, normal speech Psych: Normal mood and affect Labs and Imaging: Laboratory Tests 03/21/17 05:26 Red Blood Count 3.85 L, Mean Corpuscular Volume 85.2, Mean Corpuscular Hemoglobin 27.3, Mean Corpuscular Hemoglobin Concent 32.0, Red Cell Distribution Width 13.3, Neutrophils (%) (Auto) 71.6 H, Lymphocytes (%) (Auto) 20.6 L, Monocytes (%) (Auto) 6.4 H, Eosinophils (%) (Auto) 0.4, Basophils (%) ( Auto) 0.4, Neutrophils # (Auto) 9.1 H, Lymphocytes # (Auto) 2.6, Monocytes # ( Auto) 0.8, Eosinophils # (Auto) 0.1, Basophils # (Auto) 0.1, Calcium Level 8.2 L , Aspartate Amino Transf (AST/SGOT) 21, Alanine Aminotransferase (ALT/SGPT) 24, Alkaline Phosphatase 79, Total Bilirubin 0.3, Total Protein 6.0 L, Albumin 2.1 L Assessment and Plan: 61-year-old female with hypertension, diabetes mellitus type 2, hyperlipidemia, chronic low back pain who presented to the emergency department with dizziness, vomiting, and a fall. She is admitted with hypovolemic shock, metabolic alkalosis, hyponatremia, acute kidney injury. 1. Hypovolemic shock: Now resolved. Patient's blood pressure has recovered. I believe this is secondary to her vomiting. 2. Non-anion gap Metabolic alkalosis: Secondary to dehydration and contraction. Now resolved. Continue to monitor. 3. Leukocytosis: WBC upon presentation was 21.8. I suspect this is a combination of volume contraction as well as a reactive process. The patient has been afebrile, and I do not believe that she currently has an infection. However, given the severity of her presentation, we have continued vancomycin and Zosyn while awaiting cultures. Urine culture and blood cultures now negative , so will stop abx. 4. Hyponatremia: Secondary to volume depletion. This is resolved. 5. Acute kidney injury: This is secondary to hypovolemic shock: Creatinine upon presentation was 3.95. This has now improved to 1.31, and at this time we will stop IV fluids. Holding home SERGE inhibitor, Lasix, and metformin. 6. Elevated d-dimer: This could be secondary to a variety of her above mentioned issues, but given that she reported some shortness of breath initially , we checked a bilateral lower extremity Doppler, which was negative for DVT, as well as a VQ scan, which was negative for PE. Unfortunately, given her kidney function, we could not conduct a CTA of the chest. 7. Elevated troponin: The patient does not endorse any chest pain, and her EKG does not show evidence of acute infarct or ischemia. However, her troponin was mildly elevated up to 0.15, and now downtrending. I suspect that this is secondary to strain from the hypovolemic shock. We will continue to monitor the patient closely for any development of chest pain. 8. Vomiting: This has now resolved. The patient is hungry and would like to eat. We have advanced her diet. 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 Unfortunately , given the patient's kidney function, we cannot get a CTA at this time. The patient does report to me that she has been having vomiting on and off for 2 months, and this is accompanied by abdominal pain that is worse after she eats. I'm suspicious for chronic mesenteric ischemia, and I consulted vascular surgery for further evaluation. They are planning for angiogram in the angiosuite on Thursday. I do not believe that she has any acute ischemia or bowel, as she clinically is currently very well-appearing, does not have any rebound or guarding on her exam, and a repeat lactate was normal. LFTs are within normal limits. 9. Hypertension: Given the initial hypovolemic shock, we are currently holding the patient's home Lasix and SERGE inhibitor. 10. Diabetes mellitus type 2: Continue the patient's home long-acting insulin. She usually takes 30 units daily, but given that we are advancing her up to a normal diet, we have cut her back to 20 units daily. Sliding scale insulin while in-house. Currently holding home metformin. 11. Hyperlipidemia: Continue home statin. 12. Right shoulder pain: Present after patient fell. Plain shoulder film unremarkable for fx or other acute finding. Still having difficulty lifting against gravity so will check MRI to rule out rotator cuff tear. 13. Abnormal finding on V/Q scan: While there is low probability for PE, there is concern for obstruction or malignancy. When her kidneys have improved a bit more, likely tomorrow, will assess with CT Chest with contrast. DVT prophylaxis: Heparin Dispo: pending improvement in kidney function and evaluation by vascular surgery VS, I&O, 24H, Fishbone Vital Signs/I&O Vital Signs Date Time Temp Pulse Resp B/P (MAP) Pulse Ox O2 Delivery O2 Flow Rate FiO2 03/21/17 05:00 97.3 79 18 145/84 (104) 94 Room Air 03/20/17 07:48 2.0 03/19/17 09:00 40 I&O- Last 24 Hours up to 6 AM 03/22/17 06:00 Intake Total 860 ml Output Total 0 ml Balance 860 ml Laboratory Data 24H LABS Laboratory Tests 2 03/20/17 16:44: Bedside Glucose (Misc Panel) 170H 03/21/17 05:26: Immature Granulocyte % (Auto) 0.6H, White Blood Count 12.7H, Red Blood Count 3.85L, Hemoglobin 10.5L, Hematocrit 32.8L, Mean Corpuscular Volume 85.2, Mean Corpuscular Hemoglobin 27.3, Mean Corpuscular Hemoglobin Concent 32.0, Red Cell Distribution Width 13.3, Platelet Count 353, Neutrophils (%) (Auto) 71.6H, Lymphocytes (%) (Auto) 20.6L, Monocytes (%) (Auto) 6.4H, Eosinophils (%) (Auto) 0.4, Basophils (%) (Auto) 0.4, Neutrophils # (Auto) 9.1H, Lymphocytes # (Auto) 2.6, Monocytes # (Auto) 0.8, Eosinophils # (Auto) 0.1, Basophils # (Auto) 0.1, Immature Granulocyte # (Auto) 0.1H, Nucleated Red Blood Cells % (auto) 0.0, Anion Gap 7L, Glomerular Filtration Rate 44.2L, Blood Urea Nitrogen 13, Creatinine 1.31H, Sodium Level 137, Potassium Level 4.5, Chloride Level 108H, Carbon Dioxide Level 22, Calcium Level 8.2L, Aspartate Amino Transf (AST/SGOT) 21, Alanine Aminotransferase (ALT/SGPT) 24, Alkaline Phosphatase 79, Total Bilirubin 0.3, Total Protein 6.0L, Albumin 2.1L, Magnesium Level 1.9, Albumin/ Globulin Ratio 0.54L 03/21/17 11:37: Bedside Glucose (Misc Panel) 228H CBC/BMP Laboratory Tests 03/21/17 05:26 Red Blood Count 3.85 L, Mean Corpuscular Volume 85.2, Mean Corpuscular Hemoglobin 27.3, Mean Corpuscular Hemoglobin Concent 32.0, Red Cell Distribution Width 13.3, Neutrophils (%) (Auto) 71.6 H, Lymphocytes (%) (Auto) 20.6 L, Monocytes (%) (Auto) 6.4 H, Eosinophils (%) (Auto) 0.4, Basophils (%) ( Auto) 0.4, Neutrophils # (Auto) 9.1 H, Lymphocytes # (Auto) 2.6, Monocytes # ( Auto) 0.8, Eosinophils # (Auto) 0.1, Basophils # (Auto) 0.1, Calcium Level 8.2 L , Aspartate Amino Transf (AST/SGOT) 21, Alanine Aminotransferase (ALT/SGPT) 24, Alkaline Phosphatase 79, Total Bilirubin 0.3, Total Protein 6.0 L, Albumin 2.1 L Microbiology Microbiology 03/18/17 Blood Culture - Preliminary, Resulted No Growth after 48 hours. All Specime... 03/18/17 Blood Culture - Preliminary, Resulted No Growth after 48 hours. All Specime... 03/20/17 Gastrointestinal Tract Panel (PCR) - Final, Complete 03/18/17 Influenza Virus Type A Antigen - Final, Complete 03/18/17 Influenza Virus Type B Antigen - Final, Complete 03/18/17 Urine Culture - Final, Complete 03/18/17 Urine Culture - Final, Complete YO HYATT Mar 21, 2017 14:20
[2017-03-21] MEDS ORDERED: LORazepam 2 MG/ML VIAL (J2060) IV STA (17:49)
[2017-03-21] MEDS ORDERED: LORazepam 2 MG/ML VIAL (J2060) IV PRN (18:00)
[2017-03-21] MEDS: ROSUVASTATIN 10 MG TAB (CRESTOR) PO SCH (21:39)
[2017-03-21] MEDS: DOCUSATE SODIUM 100 MG CAP PO SCH (21:39)
[2017-03-21 22:00] VITALS: BP 140/64
[2017-03-22] MEDS: HEPARIN SOD (PORCINE) 5000 UNITS/ML VIAL SC SCH ×3 (05:12→21:19)
[2017-03-22] MEDS: SLF 3 ML SYR IV SCH ×3 (05:12→21:20)
[2017-03-22 06:00] VITALS: BP 137/64
[2017-03-22 06:03] LABS: BASO # 0.1 10^3/uL (0.0-0.2); BASO % 0.5 % (0.0-1.0); EOS # 0.3 10^3/uL (0.0-0.50); EOS % 2.4 % (0.0-3.0); IMMATURE GRANULOCYTE % 0.7 % (0-0); LYMPH # 2.7 10^3/uL (1.5-4.5); LYMPH % 24.4 % (24.0-44.0); MEAN CORPUSCULAR HEMOGLOBIN 27.2 pg (27.0-33.0); MEAN CORPUSCULAR HGB CONC 32.6 g/dl (32.0-36.5); MEAN CORPUSCULAR VOLUME 83.3 fl (80.0-96.0); MONO # 0.8 10^3/uL (0.0-0.8); MONO % 7.5 % (0.0-5.0); NEUTROPHILS # 7.1 10^3/uL (1.8-7.7); NEUTROPHILS % 64.5 % (36.0-66.0); PLATELET COUNT, AUTOMATED 372 10^3/uL (150-450); RED CELL DISTRIBUTION WIDTH 13.2 % (11.5-14.5); WHITE BLOOD COUNT 11.1 10^3/uL (4.0-10.0)
[2017-03-22 06:24] LABS: ALBUMIN 2.2 GM/DL (3.2-5.2); ALBUMIN/GLOBULIN RATIO 0.58 (1.00-1.93); BILIRUBIN,TOTAL 0.3 MG/DL (0.2-1.0); CALCIUM LEVEL 7.9 MG/DL (8.5-10.1); CREATININE FOR GFR 1.26 MG/DL (0.55-1.02); GLOMERULAR FILTRATION RATE 46.3 (>51); MAGNESIUM LEVEL 1.9 MG/DL (1.8-2.4); POTASSIUM SERUM 4.7 MEQ/L (3.5-5.1)
[2017-03-22] MEDS: ASPIRIN 325 MG TAB PO SCH (08:07)
[2017-03-22] MEDS: HumaLOG INSULIN (NovoLOG) PER UNIT SC SCH ×4 (08:08→21:00)
[2017-03-22] MEDS: LEVEMIR (INSULIN DETEMIR) 1 UNITS/0.01ML SC SCH (08:10)
--- NOTE | 2017-03-22 11:31 | REP ---
MRI study of the right shoulder without contrast: History: Pain and severe decreased range of motion after a fall. Assess rotator cuff. Technique: Axial, oblique coronal and oblique sagittal imaging planes are utilized. T1 and T2-weighted scans were obtained. Considerable motion artifact is observed on the images because the patient was unable to stay awake and remain motionless. Exam is limited. MRI findings: Considerable motion artifact is seen on almost all sequences. There is a zone of marrow edema in the superolateral humeral head spanning approximately 2 cm. Images suggest impaction resembling Hill-Sachs deformity. No bony labral edema or fracture is seen. This may simply be a direct impaction fracture. There is considerable periarticular swelling diffusely about the humeral head and shoulder. This extends anteriorly and posteriorly. 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 There is osteoarthritic hypertrophy at the AC joint. There is superior subluxation or migration of the humeral head narrowing the subacromial space. There is a complete retracted supraspinatus tendon tear. The infraspinatus and subscapularis tendons appear intact. Biceps tendon is in the bony bicipital groove. Its integrity at that level of the genu cannot be confirmed as it is not well seen. No labral tear is appreciated. Impression: Suspect mild cortical impaction fracture superolateral humeral head. Moderate periarticular soft tissue edema. Retracted full-thickness supraspinatus tendon tear with narrowing of the subacromial space. AC joint hypertrophy with fluid in the AC joint. Signed by Robert Whittington MD 03/22/2017 01:21 P
[2017-03-22] MEDS: NS 1,000 ML IV SCH (12:30)
--- NOTE | 2017-03-22 12:40 | IPNPDOC ---
Date Seen The patient was seen on 03/22/17. Progress Note Hospitalist Progress Note Subjective: Patient states that she is doing well with her diet; no vomiting; continues to have pain in right shoulder and cannot lift that arm without using her left hand Objective: Physical Exam: Vitals: Vital Sign - Last 24 Hours 03/21/17 03/21/17 03/21/17 03/21/17 14:00 17:29 20:01 22:00 Temp 97.2 97.2 Pulse 58 85 Resp 16 16 B/P (MAP) 112/62 (79) 140/64 (89) Pulse Ox 95 94 O2 Delivery Room Air Room Air Room Air Room Air 03/22/17 03/22/17 06:00 11:39 Temp 97.5 Pulse 85 Resp 16 B/P (MAP) 137/64 (88) Pulse Ox 95 O2 Delivery Room Air Room Air General: Awake, alert, no acute distress HEENT: Normal cephalic, atraumatic, extraocular movements intact CV: Regular rate and rhythm Lungs: Clear to auscultation bilaterally Abd: Soft, no TTP, no rebound or guarding Extremities: No edema in BLE; RUE with intact radial pulse, 5/5 distal lamination inspector strength but decreased ability to lift against gravity Neuro: Alert and oriented 3, normal speech Psych: Normal mood and affect Labs and Imaging: Laboratory Tests 03/22/17 05:25 Red Blood Count 4.01, Mean Corpuscular Volume 83.3, Mean Corpuscular Hemoglobin 27.2, Mean Corpuscular Hemoglobin Concent 32.6, Red Cell Distribution Width 13.2 , Neutrophils (%) (Auto) 64.5, Lymphocytes (%) (Auto) 24.4, Monocytes (%) (Auto ) 7.5 H, Eosinophils (%) (Auto) 2.4, Basophils (%) (Auto) 0.5, Neutrophils # ( Auto) 7.1, Lymphocytes # (Auto) 2.7, Monocytes # (Auto) 0.8, Eosinophils # (Auto ) 0.3, Basophils # (Auto) 0.1, Calcium Level 7.9 L, Aspartate Amino Transf (AST/ SGOT) 16, Alanine Aminotransferase (ALT/SGPT) 22, Alkaline Phosphatase 84, Total Bilirubin 0.3, Total Protein 6.0 L, Albumin 2.2 L Assessment and Plan: 61-year-old female with hypertension, diabetes mellitus type 2, hyperlipidemia, chronic low back pain who presented to the emergency department with dizziness, vomiting, and a fall. She is admitted with hypovolemic shock, metabolic alkalosis, hyponatremia, acute kidney injury. She is now found to have rotator cuff tear. 1. Hypovolemic shock: Now resolved. Patient's blood pressure has recovered. I believe this was secondary to her vomiting. 2. Non-anion gap Metabolic alkalosis: Secondary to dehydration and contraction. Now resolved. Continue to monitor. 3. Leukocytosis: WBC upon presentation was 21.8. I suspect this is a combination of volume contraction as well as a reactive process. The patient has been afebrile, and I do not believe that she currently has an infection. However, given the severity of her presentation, we was initially started on vancomycin and Zosyn while awaiting cultures. Urine culture and blood cultures were negative, so abx were stopped on 03/21. WBC now 11.1 4. Hyponatremia: Secondary to volume depletion. This is resolved. 5. Acute kidney injury: This is secondary to hypovolemic shock: Creatinine upon presentation was 3.95. This has now improved to 1.26. Holding home SERGE inhibitor , Lasix, and metformin. 6. Elevated d-dimer: This could be secondary to a variety of her above mentioned issues, but given that she reported some shortness of breath initially , we checked a bilateral lower extremity Doppler, which was negative for DVT, as well as a VQ scan, which was negative for PE. 7. Elevated troponin: The patient does not endorse any chest pain, and her EKG does not show evidence of acute infarct or ischemia. However, her troponin was mildly elevated up to 0.15, and now downtrending. I suspect that this is secondary to strain from the hypovolemic shock. We will continue to monitor the patient closely for any development of chest pain. 8. Vomiting: This has now resolved. The patient is hungry and would like to eat. We have advanced her diet. 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 Unfortunately , given the patient's kidney function, we could not get a CTA. The patient does report to me that she has been having vomiting on and off for 2 months, and this is accompanied by abdominal pain that is worse after she eats. I'm suspicious for chronic mesenteric ischemia, and I consulted vascular surgery for further evaluation. They are planning for angiogram in the angiosuite on Thursday. I do not believe that she has any acute ischemia or bowel, as she clinically is currently very well-appearing, does not have any rebound or guarding on her exam, and a repeat lactate was normal. LFTs are within normal limits. 9. Hypertension: Given the initial hypovolemic shock, we are currently holding the patient's home Lasix and SERGE inhibitor. 10. Diabetes mellitus type 2: Continue the patient's home long-acting insulin. She usually takes 30 units daily, but given that we are advancing her up to a normal diet, we have cut her back to 20 units daily. Sliding scale insulin while in-house. Currently holding home metformin. 11. Hyperlipidemia: Continue home statin. 12. Right shoulder pain: Present after patient fell. Plain shoulder film unremarkable for fx or other acute finding. MRI shows rotator cuff tear and possible impaction fracture of humeral head. I have consulted orthopedics for further evaluation and management. 13. Abnormal finding on V/Q scan: While there is low probability for PE, there is concern for obstruction or malignancy. Now that her kidneys have improved a bit more, will assess with CTA Chest. DVT prophylaxis: Heparin Dispo: pending evaluation by ortho, evaluation by vascular surgery, and CT chest results VS, I&O, 24H, [facility] Vital Signs/I&O Vital Signs Date Time Temp Pulse Resp B/P (MAP) Pulse Ox O2 Delivery O2 Flow Rate FiO2 03/22/17 11:39 Room Air 03/22/17 06:00 97.5 85 16 137/64 (88) 95 03/20/17 07:48 2.0 03/19/17 09:00 40 I&O- Last 24 Hours up to 6 AM 03/23/17 05:59 Intake Total 120 ml Output Total 150 ml Balance -30 ml Laboratory Data 24H LABS Laboratory Tests 2 03/21/17 17:15: Bedside Glucose (Misc Panel) 219H 03/22/17 05:25: Immature Granulocyte % (Auto) 0.7H, White Blood Count 11.1H, Red Blood Count 4.01, Hemoglobin 10.9L, Hematocrit 33.4L, Mean Corpuscular Volume 83.3, Mean Corpuscular Hemoglobin 27.2, Mean Corpuscular Hemoglobin Concent 32.6, Red Cell Distribution Width 13.2, Platelet Count 372, Neutrophils (%) (Auto) 64.5, Lymphocytes (%) (Auto) 24.4, Monocytes (%) (Auto) 7.5H, Eosinophils (%) (Auto) 2.4, Basophils (%) (Auto) 0.5, Neutrophils # (Auto) 7.1, Lymphocytes # (Auto) 2.7, Monocytes # (Auto) 0.8, Eosinophils # (Auto) 0.3, Basophils # (Auto) 0.1, Immature Granulocyte # (Auto) 0.1H, Nucleated Red Blood Cells % (auto) 0.0, Anion Gap 8, Glomerular Filtration Rate 46.3L, Blood Urea Nitrogen 11, Creatinine 1.26H, Sodium Level 135L, Potassium Level 4.7, Chloride Level 107, Carbon Dioxide Level 20L, Calcium Level 7.9L, Aspartate Amino Transf (AST/SGOT) 16, Alanine Aminotransferase (ALT/SGPT) 22, Alkaline Phosphatase 84, Total Bilirubin 0.3, Total Protein 6.0L, Albumin 2.2L, Magnesium Level 1.9, Albumin/ Globulin Ratio 0.58L CBC/BMP Laboratory Tests 03/22/17 05:25 Red Blood Count 4.01, Mean Corpuscular Volume 83.3, Mean Corpuscular Hemoglobin 27.2, Mean Corpuscular Hemoglobin Concent 32.6, Red Cell Distribution Width 13.2 , Neutrophils (%) (Auto) 64.5, Lymphocytes (%) (Auto) 24.4, Monocytes (%) (Auto ) 7.5 H, Eosinophils (%) (Auto) 2.4, Basophils (%) (Auto) 0.5, Neutrophils # ( Auto) 7.1, Lymphocytes # (Auto) 2.7, Monocytes # (Auto) 0.8, Eosinophils # (Auto ) 0.3, Basophils # (Auto) 0.1, Calcium Level 7.9 L, Aspartate Amino Transf (AST/ SGOT) 16, Alanine Aminotransferase (ALT/SGPT) 22, Alkaline Phosphatase 84, Total Bilirubin 0.3, Total Protein 6.0 L, Albumin 2.2 L Microbiology Microbiology 03/18/17 Blood Culture - Preliminary, Resulted No Growth after 72 hours. All specime... 03/18/17 Blood Culture - Preliminary, Resulted No Growth after 72 hours. All specime... 03/20/17 Gastrointestinal Tract Panel (PCR) - Final, Complete 03/18/17 Influenza Virus Type A Antigen - Final, Complete 03/18/17 Influenza Virus Type B Antigen - Final, Complete 03/18/17 Urine Culture - Final, Complete 03/18/17 Urine Culture - Final, Complete YO HYATT Mar 22, 2017 12:39
[2017-03-22] MEDS ORDERED: ISOVUE-370 76% 100ML VIAL (Q9967) As Ordered ONE (12:51)
[2017-03-22 14:00] VITALS: BP 101/59
--- NOTE | 2017-03-22 14:05 | REP ---
CT pulmonary angiogram: With IV contrast. History: Concern for hypoxia. Comparison studies: Comparison chest x-ray March 18, 2017. Contrast dose: 75 cc's of Isovue [address] technique: Helical scanning is acquired and overlapping 1.5 mm and contiguous 3 mm axial images are reformatted. In addition, a 3-D work station is deployed to generate thick slab maximum intensity projection images in sagittal and coronal imaging projections. CT pulmonary angiographic findings: There is good opacification of the pulmonary arterial tree and there is no CT evidence of pulmonary embolus. [facility] radiograph and CT images demonstrate complete atelectasis of the left lung with a few air bronchograms. There is a small left pleural effusion surrounding the atelectatic left lung. There is shift of the mediastinum to the left. The right lung is hyperinflated but clear. No definite hilar mass lesion is seen. There is some inspissated endobronchial content in the peripheral bronchi in the collapsed left upper lobe and lower lobe. Left hemidiaphragm is elevated. Thoracic aorta enhances homogeneously and is normal in course and caliber. No adrenal lesion is seen on either side. Visualized upper abdominal structures are unremarkable. No bony destructive lesion is seen. Impression: Complete atelectasis of the left lung with small left pleural effusion and shift of the mediastinum to the left with elevated left hemidiaphragm. No hilar or mediastinal mass is seen. There is no CT evidence of pulmonary embolus. Normal thoracic aorta. Some inspissated endobronchial secretions seen. Signed by Robert Whittington MD 03/22/2017 02:18 P
[2017-03-22] MEDS: guaiFENesin ER 600 MG TAB PO SCH ×2 (14:32→21:18)
[2017-03-22] MEDS: DOCUSATE SODIUM 100 MG CAP PO SCH (21:18)
[2017-03-22] MEDS: ROSUVASTATIN 10 MG TAB (CRESTOR) PO SCH (21:18)
[2017-03-22 22:00] VITALS: BP 136/60
[2017-03-23] MEDS: NS 1,000 ML IV SCH (03:14)
[2017-03-23] MEDS: HEPARIN SOD (PORCINE) 5000 UNITS/ML VIAL SC SCH ×3 (05:29→21:56)
[2017-03-23] MEDS: SLF 3 ML SYR IV SCH ×3 (05:56→21:56)
[2017-03-23 06:00] VITALS: BP 150/80
[2017-03-23 06:35] LABS: BASO # 0.1 10^3/uL (0.0-0.2); BASO % 0.4 % (0.0-1.0); EOS # 0.3 10^3/uL (0.0-0.50); IMMATURE GRANULOCYTE % 0.9 % (0-0); LYMPH # 3.2 10^3/uL (1.5-4.5); LYMPH % 23.5 % (24.0-44.0); MEAN CORPUSCULAR HEMOGLOBIN 27.1 pg (27.0-33.0); MEAN CORPUSCULAR HGB CONC 32.4 g/dl (32.0-36.5); MEAN CORPUSCULAR VOLUME 83.6 fl (80.0-96.0); MONO # 1.2 10^3/uL (0.0-0.8); MONO % 8.4 % (0.0-5.0); NEUTROPHILS # 8.9 10^3/uL (1.8-7.7); NEUTROPHILS % 64.8 % (36.0-66.0); PLATELET COUNT, AUTOMATED 401 10^3/uL (150-450); RED CELL DISTRIBUTION WIDTH 13.5 % (11.5-14.5); WHITE BLOOD COUNT 13.7 10^3/uL (4.0-10.0)
[2017-03-23 06:54] LABS: ALKALINE PHOSPHATASE 87 U/L (45-117); ALT/SGPT 26 U/L (12-78); AST/SGOT 18 U/L (15-37); BILIRUBIN,TOTAL 0.3 MG/DL (0.2-1.0); BLOOD UREA NITROGEN 13 MG/DL (7-18); CALCIUM LEVEL 8.1 MG/DL (8.5-10.1); CREATININE FOR GFR 1.25 MG/DL (0.55-1.02); GLUCOSE, FASTING 170 MG/DL (70-105); POTASSIUM SERUM 4.6 MEQ/L (3.5-5.1); SODIUM LEVEL 136 MEQ/L (136-145); TOTAL PROTEIN 6.3 GM/DL (6.4-8.2)
[2017-03-23 07:03] LABS: ALBUMIN 2.4 GM/DL (3.2-5.2); ALBUMIN/GLOBULIN RATIO 0.62 (1.00-1.93)
[2017-03-23] MEDS: HumaLOG INSULIN (NovoLOG) PER UNIT SC SCH ×4 (07:30→21:00)
[2017-03-23] MEDS: guaiFENesin ER 600 MG TAB PO SCH ×2 (08:08→21:54)
[2017-03-23] MEDS: ASPIRIN 325 MG TAB PO SCH (08:08)
[2017-03-23] MEDS: LEVEMIR (INSULIN DETEMIR) 1 UNITS/0.01ML SC SCH (08:10)
[2017-03-23 08:23] LABS: ANION GAP 8 MEQ/L (8-16); CARBON DIOXIDE LEVEL 19 MEQ/L (21-32); CHLORIDE LEVEL 109 MEQ/L (98-107)
--- NOTE | 2017-03-23 08:47 | IPNPDOC ---
Date Seen The patient was seen on 03/23/17. Progress Note SUBJECTIVE: Patient is without complaints. Patient is eating with no abdominal pain. OBJECTIVE PHYSICAL EXAMINATION: VITAL SIGNS: Please see below. GENERAL: Sitting in the chair resting comfortably HEENT: Normal CARDIOVASCULAR: Regular rate and rhythm. RESPIRATORY: Clear to auscultation. ABDOMINAL: Soft nontender nondistended EXTREMITIES: Warm well perfused NEUROLOGICAL: Awake alert oriented 3 PSYCHOLOGICAL: Normal LABORATORY DATA: Please see below. MICROBIOLOGY: Please see below. ASSESSMENT AND PLAN: This is a 61-year-old female who initially was admitted with dehydration hypovolemic shock with acute renal failure and a CT scan showing atheromatous plaque at the origin of this. Mesenteric and celiac arteries but this was a noncontrast CT. Patient is improving and is now eating without abdominal pain, pressures improved and her acute renal failure is resolving. PROBLEMS: 1. Possible chronic mesenteric ischemia with atheromatous plaque noted at the celiac and superior mesenteric arteries on noncontrast CT: Patient is improving and at this point there is no urgency to perform an angiogram and I recommend that she be discharged to home and will follow-up for an outpatient mesenteric angiogram in 1-2 weeks. This will allow for improved resolution of her acute renal failure and limit her risks with regard to contrast nephropathy. VS, I&O, 24H, Fishbone Vital Signs/I&O Vital Signs Date Time Temp Pulse Resp B/P (MAP) Pulse Ox O2 Delivery O2 Flow Rate FiO2 03/23/17 06:00 98.5 95 0 150/80 (103) 03/22/17 22:00 94 Room Air 03/20/17 07:48 2.0 03/19/17 09:00 40 I&O- Last 24 Hours up to 6 AM 03/24/17 06:00 Intake Total 525 ml Balance 525 ml Laboratory Data 24H LABS Laboratory Tests 2 03/22/17 12:13: Bedside Glucose (Misc Panel) 370H 03/22/17 17:15: Bedside Glucose (Misc Panel) 266H 03/22/17 20:15: Bedside Glucose (Misc Panel) 178H 03/23/17 05:59: Immature Granulocyte % (Auto) 0.9H, White Blood Count 13.7H, Red Blood Count 4.02, Hemoglobin 10.9L, Hematocrit 33.6L, Mean Corpuscular Volume 83.6, Mean Corpuscular Hemoglobin 27.1, Mean Corpuscular Hemoglobin Concent 32.4, Red Cell Distribution Width 13.5, Platelet Count 401, Neutrophils (%) (Auto) 64.8, Lymphocytes (%) (Auto) 23.5L, Monocytes (%) (Auto) 8.4H, Eosinophils (%) (Auto) 2.0, Basophils (%) (Auto) 0.4, Neutrophils # (Auto) 8.9H, Lymphocytes # (Auto) 3.2, Monocytes # (Auto) 1.2H, Eosinophils # (Auto) 0.3, Basophils # (Auto) 0.1, Immature Granulocyte # (Auto) 0.1H, Nucleated Red Blood Cells % (auto) 0.0, Anion Gap 8, Blood Urea Nitrogen 13, Creatinine 1.25H, Sodium Level 136, Potassium Level 4.6, Chloride Level 109H, Carbon Dioxide Level 19L, Calcium Level 8.1L, Aspartate Amino Transf (AST/SGOT) 18, Alanine Aminotransferase (ALT/ SGPT) 26, Alkaline Phosphatase 87, Total Bilirubin 0.3, Total Protein 6.3L, Albumin 2.4L, Magnesium Level 2.0, Albumin/Globulin Ratio 0.62L 03/23/17 06:54: Bedside Glucose (Misc Panel) 167H CBC/BMP Laboratory Tests 03/23/17 05:59 Red Blood Count 4.02, Mean Corpuscular Volume 83.6, Mean Corpuscular Hemoglobin 27.1, Mean Corpuscular Hemoglobin Concent 32.4, Red Cell Distribution Width 13.5 , Neutrophils (%) (Auto) 64.8, Lymphocytes (%) (Auto) 23.5 L, Monocytes (%) ( Auto) 8.4 H, Eosinophils (%) (Auto) 2.0, Basophils (%) (Auto) 0.4, Neutrophils # (Auto) 8.9 H, Lymphocytes # (Auto) 3.2, Monocytes # (Auto) 1.2 H, Eosinophils # (Auto) 0.3, Basophils # (Auto) 0.1, Calcium Level 8.1 L, Aspartate Amino Transf (AST/SGOT) 18, Alanine Aminotransferase (ALT/SGPT) 26, Alkaline Phosphatase 87, Total Bilirubin 0.3, Total Protein 6.3 L, Albumin 2.4 L Microbiology Microbiology 03/18/17 Blood Culture - Preliminary, Resulted No Growth after 72 hours. All specime... 03/18/17 Blood Culture - Preliminary, Resulted No Growth after 72 hours. All specime... 03/20/17 Gastrointestinal Tract Panel (PCR) - Final, Complete 03/18/17 Influenza Virus Type A Antigen - Final, Complete 03/18/17 Influenza Virus Type B Antigen - Final, Complete 03/18/17 Urine Culture - Final, Complete 03/18/17 Urine Culture - Final, Complete Ethan Roth MD Mar 23, 2017 08:47
[2017-03-23] MEDS ORDERED: IPRATROPIUM 0.5MG/ALBUTEROL 2.5MG INH SOL UD 3ML (DUONEB)(J7620) NEB PRN (09:15)
[2017-03-23] MEDS: AMPICILLIN SOD/SULBACTAM SOD 3 GM in D5W MINI-BAG PLUS 100 ML IV SCH ×3 (10:35→21:55)
[2017-03-23] MEDS ORDERED: IPRASOL4 NEB (11:44)
[2017-03-23] MEDS ORDERED: AMOX875T2 PO (11:48)
[2017-03-23 14:00] VITALS: BP 107/58
[2017-03-23] MEDS: IPRATROPIUM 0.5MG/ALBUTEROL 2.5MG INH SOL UD 3ML (DUONEB)(J7620) NEB SCH ×2 (14:03→20:44)
--- NOTE | 2017-03-23 14:17 | CR ---
DATE OF CONSULTATION: 03/23/2017 REQUESTING PHYSICIAN: Marilou Chamorro REASON FOR CONSULTATION: Abnormal chest CT. HISTORY OF PRESENT ILLNESS: Sharon Barrera is a 61-year-old female who was admitted on 03/18/2017. She had been having intermittent abdominal pain, intermittent bouts of vomiting, and ultimately is suspected to have intermittent bowel ischemia. Thought to be probable chronic mesenteric ischemia. She was at home vomiting, had dizziness, and actually fell at times, and presented to the hospital with hypotension and hypovolemic shock. At that point in time, she had a normal-appearing chest x-ray. However, on abdominal imaging, there were abnormalities of her chest. Therefore, a V/Q scan was considered because she had an elevated D-dimer, which showed no significant ventilation to that lung field, and there was concern for endobronchial lesions. So, a CT scan was performed. The patient today states that she is breathing well. She has occasional productive mucus of clear thick mucus. No hemoptysis. No green tinge to the mucus production. She had been vomiting quite frequently. Does not recall choking on vomit. Her vomiting has stopped, and she actually feels better and wants to go home. She states she has no underlying lung disease. No history of recurrent pneumonia. She rarely gets bronchitis, usually once every 4 years. She has no prior history of lung disease. She has no pleurisy but does complain of a right-sided chest pain with coughing. She states she fell on her right side and actually hurt her shoulder at the same time. The pain is only there with coughing, does not radiate. She feels at times she is unable to get mucus up. Believe there is mucus down in her lungs. She is having difficulty with clearing. She has no fevers, chills. No weight loss.. She denies any recent events where she was choking on food. She has no dysphagia. She has no chest discomfort other than the right-sided pain with coughing. She has no anginal symptoms. No lower extremity edema. No calf pain. PAST MEDICAL HISTORY: 1. Type 2 diabetes. 2. Hypertension. 3. Hyperlipidemia. 4. Chronic low back pain, for which she is disabled since 2002. FAMILY HISTORY: Mother from a myocardial infarction ([place]). She has a brother with chronic obstructive pulmonary disease. No other lung disease in her family. SOCIAL HISTORY: She has been smoking since the age of 18, on average a pack a day, usually less. therefore, estimated pack-year history is 40 pack-year. She has no illicit drugs, no alcohol use. She lives in [place] and lives with her two brothers. 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 She has two cats in her home. No birds. ALLERGIES: NITROFURANTOIN. CURRENT MEDICATIONS: Include: - guaifenesin - Ativan - Humalog - aspirin - heparin 5000 units subcutaneous every 8 - Crestor 40 mg by mouth nightly - Colace 200 mg by mouth nightly - Tylenol 650 mg by mouth every 4 - Zofran 4 mg intravenous (IV) every 6 REVIEW OF SYSTEMS: In general, no weight loss, fever, chills. No night sweats. HEENT: No recent change in vision. She was glasses. No epistaxis. No difficulty with swallowing. No mouth or tongue lesions. No difficulty with hearing. Cardiac: No anginal symptoms. No symptoms of claudication. She denies palpitation. No orthopnea, paroxysmal nocturnal dyspnea (PND). Pulmonary: As per history of present illness (HPI). No history of pleurisy. No history of tuberculosis or tuberculosis contacts. Gastrointestinal (GI): She has had recent nausea, vomiting, as mentioned above. No change in her bowel habits. No blood in stool. No constipation or diarrhea. No history of liver disease. Genitourinary (): No burning or pain with urination. No frequent urination at night. No nocturia. No history of nephrolithiasis. Endocrine: She has diabetes. No history of polyuria or polydipsia. No hot or cold intolerance. No history of thyroid disease. Neurologic: No history of seizures. No history of head trauma. No unilateral weakness. She denies history of a stroke. Psychiatric: No depression, anxiety, or suicidal ideation. Immunology/allergy: No history of environmental allergens. No history of recurrent infection. Sleep: No history of obstructive sleep apnea. Denies excessive daytime somnolence. No morning headaches. Skin: No new rashes, jaundice, or bruising. No pruritic rash. PHYSICAL EXAMINATION: Shows a temperature of 98.5, pulse of 95, oxygen saturations 94% on room air, blood pressure is 150/80. Intake and output (I and O): 2682 in and 1000 out over the past 24 hours. She is net positive 1.6 liters. LABORATORY EVALUATION: Shows an increasing white count from 11.1 to 13.7 with a hemoglobin of 10.9, hematocrit of 33.6, and a platelet count of 401. Sodium is 136, potassium 4.6, chloride is 109, bicarbonate is 19, BUN is 13, creatinine is 1.25, anion gap is 8, with a blood glucose of 170. PT is 14.3, INR 1.09, PTT of 28.6. Elevated D-dimer on 03/18/2017, which was 2891. Chest imaging was reviewed in detail. There is a CT angiogram from 03/22/2017, which does not show any evidence of pulmonary embolism. There is complete opacification of the lung parenchyma on the left with volume loss such that there is shifting of the heart to the left. There is loculated pleural effusion and elevated hemidiaphragm. There are air bronchograms throughout both lung mims. There is no definite mass in the airway. The right lung is well aerated. There is minimal amounts of emphysema. Of note, chest x-ray performed AP view from 03/18/2017 shows clear lung mims bilaterally with clear diaphragm. The left lung is especially clear. May be some hilar prominence. No evidence of infiltrate at that point in time. IMPRESSION: Given the patient's clinical presentation, I suspect this is most likely aspiration pneumonia. There are air bronchograms on examination. Her white count increased after stopping antibiotics; therefore, I would place her on antibiotics to cover aspiration pneumonia. 1. Abnormal chest CT, most consistent with aspiration pneumonia. Recommend good pulmonary toilet, efforts towards mucociliary clearance, including nebulization, chest physical therapy (PT), acapella, and re-imaging in the morning. If she has no significant improvement in lung aeration, will consider bronchoscopy at that point in time. Would restart antibiotics to focus on aspiration pneumonia. 2. Emphysema. Will likely need followup as an outpatient with pulmonary function testing. 3. Nicotine dependence. Extensive counseling on need to quit smoking. She believes she will try after this hospitalization.
--- NOTE | 2017-03-23 15:48 | IPNPDOC ---
Date Seen The patient was seen on 03/23/17. Progress Note Hospitalist Progress Note Subjective: Patient initially told me she wanted to leave today, even if she had to do it AMA; however, after further consideration, she has decided to stay. She denies abd pain or trouble breathing. 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 but decreased ability to lift against gravity Neuro: Alert and oriented 3, normal speech Psych: Normal mood and affect Labs and Imaging: Laboratory Tests 03/23/17 05:59 Red Blood Count 4.02, Mean Corpuscular Volume 83.6, Mean Corpuscular Hemoglobin 27.1, Mean Corpuscular Hemoglobin Concent 32.4, Red Cell Distribution Width 13.5 , Neutrophils (%) (Auto) 64.8, Lymphocytes (%) (Auto) 23.5 L, Monocytes (%) ( Auto) 8.4 H, Eosinophils (%) (Auto) 2.0, Basophils (%) (Auto) 0.4, Neutrophils # (Auto) 8.9 H, Lymphocytes # (Auto) 3.2, Monocytes # (Auto) 1.2 H, Eosinophils # (Auto) 0.3, Basophils # (Auto) 0.1, Calcium Level 8.1 L, Aspartate Amino Transf (AST/SGOT) 18, Alanine Aminotransferase (ALT/SGPT) 26, Alkaline Phosphatase 87, Total Bilirubin 0.3, Total Protein 6.3 L, Albumin 2.4 L Assessment and Plan: 61-year-old female with hypertension, diabetes mellitus type 2, hyperlipidemia, chronic low back pain who presented to the emergency department with dizziness, vomiting, and a fall. She is admitted with hypovolemic shock, metabolic alkalosis, hyponatremia, acute kidney injury. She is now found to have rotator cuff tear, concern for intermittent chronic mesenteric ischemia, and likely aspiration pneumonia. 1. Hypovolemic shock: Now resolved. Patient's blood pressure has recovered. I believe this was secondary to her vomiting. 2. Non-anion gap Metabolic alkalosis: Secondary to dehydration and contraction. Now resolved. Continue to monitor. 3. Leukocytosis: WBC upon presentation was 21.8. I initially suspected this was a combination of volume contraction as well as a reactive process. The patient has been afebrile, initial chest imaging was negative, and after cultures were negative, antibiotics were stopped on 03/21, at which time her WBC was 10. Since then, WBC has risen to 13, and CTA of chest reveals complete atelectasis of left lung, concerning for aspiration pneumonia, so will start on unasyn. 4. Hyponatremia: Secondary to volume depletion. This is resolved. 5. Acute kidney injury: This is secondary to hypovolemic shock: Creatinine upon presentation was 3.95. This has now improved to 1.25. Holding home SERGE inhibitor , Lasix, and metformin. 6. Elevated d-dimer: This could be secondary to a variety of her above mentioned issues, but given that she reported some shortness of breath initially , we checked a bilateral lower extremity Doppler, which was negative for DVT, as well as a VQ scan, which was negative for PE. CTA chest has now been obtained as well, and is negative for PE. 7. Elevated troponin: The patient does not endorse any chest pain, and her EKG does not show evidence of acute infarct or ischemia. However, her troponin was mildly elevated up to 0.15, and now downtrending. I suspect that this is secondary to strain from the hypovolemic shock. We will continue to monitor the patient closely for any development of chest pain. Echo is significant for grade 1 diastolic dysfunction and moderate pHTN. 8. Vomiting: This has now resolved. The patient is hungry and would like to eat. We have advanced her diet. 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 Unfortunately , given the patient's kidney function, we could not get a CTA. The patient does report to me that she has been having vomiting on and off for 2 months, and this is accompanied by abdominal pain that is worse after she eats. I'm suspicious for chronic mesenteric ischemia, and I consulted vascular surgery for further evaluation. They were initially planning for angiogram in the angiosuite today, but given her CT chest findings and how well she has clinically done over the weekend, they prefer to hold off and complete this as an outpatient. Per Dr. Roth, we will have the patient follow up with him in one week I do not believe that she has any acute ischemia or bowel, as she clinically is currently very well-appearing, does not have any rebound or guarding on her exam, and a repeat lactate was normal. LFTs are within normal limits. 9. Hypertension: Given the initial hypovolemic shock, we are currently holding the patient's home Lasix and SERGE inhibitor. 10. Diabetes mellitus type 2: Continue the patient's home long-acting insulin. She usually takes 30 units daily, but given that we are advancing her up to a normal diet, we have cut her back to 20 units daily. Sliding scale insulin while in-house. Currently holding home metformin. 11. Hyperlipidemia: Continue home statin. 12. Right shoulder pain, rotator cuff tear: Present after patient fell. Plain shoulder film unremarkable for fx or other acute finding. MRI shows rotator cuff tear and possible impaction fracture of humeral head. I have consulted orthopedics for further evaluation and management; per my discussion with Dr. Caraballo, he recommends PT to prevent frozen shoulder and office follow up one week after discharge to evaluate for possible surgical repair. 13. Complete left lung atelectasis, concern for aspiration PNA: While on V/Q there is low probability for PE, there is concern for obstruction or malignancy. CTA Chest shows complete atelectasis of left lung with mediastinal shift and elevated left hemidiaphragm. I discussed this with Dr. Bae, who will evaluate the patient, and she believes it may represent an aspiration PNA. Will start on unasyn, with chest PT/acapella/IS/nebulizers and repeat CXR tomorrow. DVT prophylaxis: Heparin Dispo: pending improvement in complete left lung atelectasis VS, I&O, 24H, Fishbone Vital Signs/I&O Vital Signs Date Time Temp Pulse Resp B/P (MAP) Pulse Ox O2 Delivery O2 Flow Rate FiO2 03/23/17 11:52 Room Air 03/23/17 06:00 98.5 95 0 150/80 (103) 03/22/17 22:00 94 03/20/17 07:48 2.0 03/19/17 09:00 40 I&O- Last 24 Hours up to 6 AM 03/24/17 05:59 Intake Total 1065 ml Output Total 150 ml Balance 915 ml Laboratory Data 24H LABS Laboratory Tests 2 03/22/17 17:15: Bedside Glucose (Misc Panel) 266H 03/22/17 20:15: Bedside Glucose (Misc Panel) 178H 03/23/17 05:59: Immature Granulocyte % (Auto) 0.9H, White Blood Count 13.7H, Red Blood Count 4.02, Hemoglobin 10.9L, Hematocrit 33.6L, Mean Corpuscular Volume 83.6, Mean Corpuscular Hemoglobin 27.1, Mean Corpuscular Hemoglobin Concent 32.4, Red Cell Distribution Width 13.5, Platelet Count 401, Neutrophils (%) (Auto) 64.8, Lymphocytes (%) (Auto) 23.5L, Monocytes (%) (Auto) 8.4H, Eosinophils (%) (Auto) 2.0, Basophils (%) (Auto) 0.4, Neutrophils # (Auto) 8.9H, Lymphocytes # (Auto) 3.2, Monocytes # (Auto) 1.2H, Eosinophils # (Auto) 0.3, Basophils # (Auto) 0.1, Immature Granulocyte # (Auto) 0.1H, Nucleated Red Blood Cells % (auto) 0.0, Anion Gap 8, Blood Urea Nitrogen 13, Creatinine 1.25H, Sodium Level 136, Potassium Level 4.6, Chloride Level 109H, Carbon Dioxide Level 19L, Calcium Level 8.1L, Aspartate Amino Transf (AST/SGOT) 18, Alanine Aminotransferase (ALT/ SGPT) 26, Alkaline Phosphatase 87, Total Bilirubin 0.3, Total Protein 6.3L, Albumin 2.4L, Magnesium Level 2.0, Albumin/Globulin Ratio 0.62L 03/23/17 06:54: Bedside Glucose (Misc Panel) 167H 03/23/17 11:47: Bedside Glucose (Misc Panel) 292H CBC/BMP Laboratory Tests 03/23/17 05:59 Red Blood Count 4.02, Mean Corpuscular Volume 83.6, Mean Corpuscular Hemoglobin 27.1, Mean Corpuscular Hemoglobin Concent 32.4, Red Cell Distribution Width 13.5 , Neutrophils (%) (Auto) 64.8, Lymphocytes (%) (Auto) 23.5 L, Monocytes (%) ( Auto) 8.4 H, Eosinophils (%) (Auto) 2.0, Basophils (%) (Auto) 0.4, Neutrophils # (Auto) 8.9 H, Lymphocytes # (Auto) 3.2, Monocytes # (Auto) 1.2 H, Eosinophils # (Auto) 0.3, Basophils # (Auto) 0.1, Calcium Level 8.1 L, Aspartate Amino Transf (AST/SGOT) 18, Alanine Aminotransferase (ALT/SGPT) 26, Alkaline Phosphatase 87, Total Bilirubin 0.3, Total Protein 6.3 L, Albumin 2.4 L Microbiology Microbiology 03/18/17 Blood Culture - Final, Complete NO GROWTH AFTER 5 DAYS 03/18/17 Blood Culture - Final, Complete NO GROWTH AFTER 5 DAYS 03/20/17 Gastrointestinal Tract Panel (PCR) - Final, Complete 03/18/17 Influenza Virus Type A Antigen - Final, Complete 03/18/17 Influenza Virus Type B Antigen - Final, Complete 03/18/17 Urine Culture - Final, Complete 03/18/17 Urine Culture - Final, Complete YO HYATT Mar 23, 2017 15:48
[2017-03-23] MEDS: ROSUVASTATIN 10 MG TAB (CRESTOR) PO SCH (21:54)
[2017-03-23] MEDS: DOCUSATE SODIUM 100 MG CAP PO SCH (21:54)
[2017-03-23 22:00] VITALS: BP 108/66
[2017-03-24] MEDS: IPRATROPIUM 0.5MG/ALBUTEROL 2.5MG INH SOL UD 3ML (DUONEB)(J7620) NEB SCH ×3 (00:58→13:03)
[2017-03-24] MEDS: AMPICILLIN SOD/SULBACTAM SOD 3 GM in D5W MINI-BAG PLUS 100 ML IV SCH ×2 (04:14→09:57)
[2017-03-24] MEDS: HEPARIN SOD (PORCINE) 5000 UNITS/ML VIAL SC SCH ×2 (05:18→14:00)
[2017-03-24] MEDS: SLF 3 ML SYR IV SCH ×2 (05:19→14:00)
[2017-03-24 06:00] VITALS: BP 151/72
[2017-03-24 06:11] LABS: BASO % 0.2 % (0.0-1.0); EOS # 0.1 10^3/uL (0.0-0.50); EOS % 0.4 % (0.0-3.0); IMMATURE GRANULOCYTE % 0.9 % (0-0); LYMPH # 2.9 10^3/uL (1.5-4.5); LYMPH % 20.5 % (24.0-44.0); MEAN CORPUSCULAR HEMOGLOBIN 27.2 pg (27.0-33.0); MEAN CORPUSCULAR HGB CONC 32.7 g/dl (32.0-36.5); MEAN CORPUSCULAR VOLUME 83.2 fl (80.0-96.0); MONO # 1.1 10^3/uL (0.0-0.8); MONO % 7.5 % (0.0-5.0); NEUTROPHILS # 9.8 10^3/uL (1.8-7.7); NEUTROPHILS % 70.5 % (36.0-66.0); PLATELET COUNT, AUTOMATED 379 10^3/uL (150-450); RED CELL DISTRIBUTION WIDTH 13.7 % (11.5-14.5)
[2017-03-24 06:43] LABS: ALBUMIN 2.4 GM/DL (3.2-5.2); ALBUMIN/GLOBULIN RATIO 0.6 (1.00-1.93); BILIRUBIN,TOTAL 0.3 MG/DL (0.2-1.0); CALCIUM LEVEL 8.7 MG/DL (8.5-10.1); CREATININE FOR GFR 1.16 MG/DL (0.55-1.02); GLOMERULAR FILTRATION RATE 50.9 (>51); MAGNESIUM LEVEL 2.1 MG/DL (1.8-2.4); POTASSIUM SERUM 4.2 MEQ/L (3.5-5.1); TOTAL PROTEIN 6.4 GM/DL (6.4-8.2)
[2017-03-24] MEDS: ASPIRIN 325 MG TAB PO SCH (08:04)
[2017-03-24] MEDS: guaiFENesin ER 600 MG TAB PO SCH (08:04)
[2017-03-24] MEDS: HumaLOG INSULIN (NovoLOG) PER UNIT SC SCH ×2 (08:05→13:30)
[2017-03-24] MEDS: LEVEMIR (INSULIN DETEMIR) 1 UNITS/0.01ML SC SCH (08:06)
--- NOTE | 2017-03-24 09:24 | REP ---
CHEST, TWO VIEWS: HISTORY: Left lung atelectasis. COMPARISON: CT chest 03/22/2017. Increased density is present in the left lower lobe consistent with atelectasis or infiltrate. The right lung is clear. A small left pleural effusion is present. The heart is normal in size. The pulmonary vasculature is normal in appearance. A hiatal hernia is present. Degenerative change is present in the thoracic spine. IMPRESSION: 1. Left lower lobe atelectasis or infiltrate. 2. Small left pleural effusion. Signed by Conrado Hester MD 03/24/2017 09:35 A
[2017-03-24] MEDS ORDERED: AMLO5TAB2 PO (11:56)
--- NOTE | 2017-03-26 21:51 | DSES ---
DATE OF ADMISSION: 03/18/2017 DATE OF DISCHARGE: 03/24/2017 PRIMARY CARE PROVIDER: Faby Villagomez DISCHARGE DIAGNOSES: 1. Hypovolemic shock due to persistent vomiting, poor intake on the background of diuretics and angiotensin-converting enzyme inhibitors. 2. Acute kidney injury due to hypovolemic shock. Has resolved. 3. Intermittent abdominal pain and vomiting. Concerns for chronic mesenteric ischemia. Patient to followup with Dr. Roth for CT angiogram as an outpatient. 4. Hyponatremia secondary to volume depletion. 5. Aspiration pneumonia. 6. Left-sided pleural effusion, most probably parapneumonic effusion. Patient to followup with Dr. Bae in 1 week. 7. Diabetes. 8. Hyperlipidemia. 9. Grade 1 diastolic dysfunction. 10. Pulmonary hypertension. 11. Elevated troponin secondary to hypotension with relative cardiac ischemia. 12. Rotator cuff tear status post fall in the house. Patient to followup with Dr. Caraballo as an outpatient. 13. Hyperlipidemia. 14. Chronic low back pain. 15. Left lung atelectasis. 16. Metabolic alkalosis on presentation. 17. Postinfectious bronchospasm. DISCHARGE MEDICATIONS: - Augmentin 875 mg by mouth twice a day for 10 days - amlodipine 5 mg daily - albuterol ipratropium nebulizer solution every 6 hours as needed for 10 days - aspirin 162.5 mg by mouth daily - Colace 200 mg at bedtime - Lantus 30 units subcutaneously daily - loratadine 10 mg daily - Crestor 40 mg at bedtime - latanoprost eye drop, one drop both eyes at bedtime HOSPITAL COURSE: This is a 61-year-old female who presented to the hospital with complaints of dizziness for 2-3 days followed by fall on the day of the admission with shoulder pain associated with nausea and vomiting for about 1 week. Patient also had dysuria initially and was prescribed antibiotics by primary care physician (PCP). She took 6 days of antibiotics. In the emergency room patient was found to have acute kidney injury and hypotension. Patient was diagnosed with hypovolemic shock related to her poor oral intake, persistent nausea and vomiting, in the background of being on angiotensin-converting enzyme (SERGE) inhibitors and diuretics. Patient was admitted to the hospital, aggressively hydrated with subsequent regular improvement in her renal function. In view of her persistent nausea and intermittent abdominal pain, we thought that patient might have underlying mesenteric ischemia. A CT scan of the abdomen did show heavy atheromas of the abdominal aorta. Patient was seen by Dr. Roth from vascular; however, it was decided to hold off on the CT angiogram of the abdomen in view of her recent acute renal failure and elevated creatinine. He would see the patient as an outpatient and get the tests done. Patient also complained of right shoulder pain since her fall at home and underwent shoulder MRI, which showed rotator cuff tear with full-thickness supraspinatus tendon tear and narrowing of the subacromial space. Patient was evaluated by orthopedics, Dr. Caraballo, and patient to followup in their office for further management. Patient was initially hypoxic in the first 3 days of admission. Gradually her hypoxia resolved. X-rays during that time did not show any abnormality; however, in view of her persistent hypoxia, she underwent a V/Q scan, which showed globally diminished ventilatory and perfusion activity in the left lung, matched right lung defect, low probability pattern of pulmonary embolism. Question was raised about the presence of any bronchial obstruction versus malignancy. Patient subsequently underwent CT angiogram of the chest, which did not reveal any pulmonary embolism but did not complete atelectasis of the left lung with small left pleural effusion and shift of the mediastinum to the left with elevated left hemidiaphragm. Some inspissated endobronchial secretions were seen. It was felt that the patient had aspirated during her bouts of vomiting, and this may represent aspiration pneumonia versus mucous plug. Patient was started on Unasyn. Patient showed improvement, and even there was improvement in her hypoxia. X-ray was repeated after 2 days, which showed small left lower atelectasis or infiltrate and a small left pleural effusion. Patient was evaluated by pulmonary during the hospitalization, and pulmonary is going to follow the patient up as an outpatient. On the day of discharge, patient did continue to have mild wheezing; however, patient was asymptomatic and was not hypoxic. Patient was functionally close to her baseline without any complaints and stable vital signs. PHYSICAL EXAMINATION: VITAL SIGNS: Temperature 96.1, pulse 77, respiratory rate 18, blood pressure 151/72, pulse oximetry 93% in room air. GENERAL: Patient awake, alert, oriented times three, sitting up in bed in no acute distress . HEENT: Normocephalic, atraumatic. Moist mucous membranes. Anicteric eyes. CHEST: Bilateral mild wheezing present. There is mildly diminished breath sounds on the left. CARDIOVASCULAR: S1, S2, regular. No rub, murmur, or gallop. ABDOMEN: Obese, soft, nontender. Bowel sounds present. EXTREMITIES: No edema. LABORATORY DATA: WBC 14, hemoglobin 10.2, platelets 379. Sodium 136, potassium 4.2, chloride 107, bicarbonate 23, BUN 10, creatinine 1.16, glucose 207, Liver function tests are normal. Coagulation studies are normal. D-dimer was elevated, which was felt to be due to her acute disease. Blood culture was negative. Urine culture was normal. Gastrointestinal panel was negative. Influenza antigen was negative. RADIOLOGY: As mentioned above. DISPOSITION: Patient is discharged home in a stable condition. DISCHARGE INSTRUCTIONS: Patient to followup with primary care provider in 1 week. Patient to followup with Dr. Bae in 1 week. Patient to followup with Dr. Caraballo in 2 weeks. Patient to followup with Dr. Roth in 1 week. Carbohydrate-consistent diet. Activity as tolerated.
== END 2017-03-24 14:27 | disposition home or self-care (01) | DRG 871 ==
LOC: M ED 13:18 → M ED INP 15:23 → M ICU 16:29 → M MSPAV 03-20 17:13
PROVIDERS: ADMIT Internal Medicine; ATTEND Internal Medicine Nephrology
DX: R57.1 Hypovolemic shock (principal); J69.0 Pneumonitis due to inhalation of food and vomit; N17.9 Acute kidney failure, unspecified; E87.2 Acidosis; E87.1 Hypo-osmolality and hyponatremia; J98.11 Atelectasis; I95.9 Hypotension, unspecified; E78.5 Hyperlipidemia, unspecified; M54.5 Low back pain; E11.9 Type 2 diabetes mellitus without complications; I27.20 Pulmonary hypertension, unspecified; Z79.82 Long term (current) use of aspirin; Z79.899 Other long term (current) drug therapy; R10.9 Unspecified abdominal pain; Z79.4 Long term (current) use of insulin; S46.011A Strain of muscle(s) and tendon(s) of the rotator cuff of right shoulder, initial encounter; W18.30XA Fall on same level, unspecified, initial encounter; Y92.009 Unspecified place in unspecified non-institutional (private) residence as the place of occurrence of the external cause; Z88.8 Allergy status to other drugs, medicaments and biological substances; F17.200 Nicotine dependence, unspecified, uncomplicated; E87.6 Hypokalemia; I10 Essential (primary) hypertension; J43.9 Emphysema, unspecified

== ENCOUNTER → 2017-04-20 | Outpatient (CLI) | payer MEDICARE, MEDICAID ==
[~2017-04-20] MED LIST changes: +AMLO10TA PO; +AMLO5TAB2 PO; +AMOX875T2 PO; +ASPI325T PO; +CLAR10CA3 PO; +COLA100C5 PO; +HUMA100I5; +INSULANT SC; +IPRASOL4 NEB; +METF500T13 PO
[2017-04-20 11:17] LABS: MEAN CORPUSCULAR HEMOGLOBIN 26.1 pg (27.0-33.0); MEAN CORPUSCULAR HGB CONC 31.3 g/dl (32.0-36.5); MEAN CORPUSCULAR VOLUME 83.4 fl (80.0-96.0); PLATELET COUNT, AUTOMATED 316 10^3/uL (150-450); WHITE BLOOD COUNT 8.8 10^3/uL (4.0-10.0)
--- NOTE | 2017-04-20 11:43 | REP ---
Clinical: Follow up pneumonia. Technique: PA and lateral. Comparison: 03/24/2017. Findings: Previously identified moderate to large left lower lobe consolidation/effusion has resolved. Mediastinum and cardiac silhouette are stable and within normal limits. Lung mims demonstrate diffuse chronic stable changes without process. Impression: Essentially complete resolution to the previous left lower lobe consolidation / opacity. Diffuse chronic stable changes. Signed by Jose De Jesus Guevara MD 04/20/2017 11:35 A
[2017-04-20 11:48] LABS: CREATININE FOR GFR 1.05 MG/DL (0.55-1.02); GLOMERULAR FILTRATION RATE 56.9 (>45); POTASSIUM SERUM 3.8 MEQ/L (3.5-5.1)
== END ==
LOC: M LAB 10:43
PROVIDERS: ATTEND Surgery Vascular Surgery
DX: J18.9 Pneumonia, unspecified organism (principal); I73.9 Peripheral vascular disease, unspecified

== ENCOUNTER → 2017-05-06 | Outpatient (CLI) | payer MEDICARE, MEDICAID ==
--- NOTE | 2017-05-06 21:29 | REP ---
Clinical: Follow up left lower lobe collapse. Comparison: 03/22/2017. Findings: Mild emphysematous changes and chronic age-related interstitial changes are appreciated bilaterally along with minimal areas of subpleural scarring possibly related to trauma as old healed rib fractures are identified. The left hemithorax is essentially completely aerated with only minimal basilar and lingular atelectasis. The tracheobronchial tree is patent. No significant consolidation, obvious nodule or mass lesion identified. No pleural effusion. No pneumothorax. Atherosclerotic changes to the thoracic aorta and coronary arteries noted without aortic aneurysm or cardiomegaly. No pericardial effusion. Limited upper abdomen demonstrates normal bilateral adrenal glands. Impression: Mild emphysematous changes and chronic age-related interstitial changes with trace residual left basilar atelectasis. The left hemithorax is essentially completely aerated and the previously noted collapse has resolved. Signed by Jose De Jesus Guevara MD 05/06/2017 09:20 P
== END ==
LOC: M RAD 17:35
PROVIDERS: ATTEND Physician Assistant
DX: R91.8 Other nonspecific abnormal finding of lung field (principal)

== ENCOUNTER → 2017-05-25 | Outpatient (CLI) | payer MEDICARE, MEDICAID ==
--- NOTE | 2017-05-25 17:08 | REP ---
MRI RIGHT SHOULDER: TECHNIQUE: Axial T2 fat sat, gradient echo, sagittal oblique T2 fat sat, coronal oblique T1, T2 fat sat. COMPARISON: 03/21/2017 There is an extensive full thickness complete tear of the supraspinatus tendon with retraction of the musculotendinous junction approximately 3.5 cm. There also appears to be a full thickness tear of the infraspinatus tendon, teres minor and subcapsularis appear intact. There are moderate hypertrophic degenerative changes of the acromioclavicular joint. There is a type 2 acromion. Biceps tendon is not well visualized in the bicipital groove. There is nigh signal edema and mild fluid and I suspect a tear of the biceps in this region The biceps is not seen inserting on to the superior labrum anterior aspect. Once again there appears to be impaction of the lateral aspect of the humeral head with underlying bone marrow edema as seen on prior MRI. The deltoid muscle was unremarkable with no abnormal signal. There is diffuse tearing and fraying of the superior labrum. The other portions of the labrum appear intact. There is mild marrow edema in the superior bony glenoid. There is mild to moderate diffuse chondromalacia. There is a small joint effusion with fluid extending into the subacromial subdeltoid bursae. There is no paralabral cyst is seen. IMPRESSION: Complete full thickness tear supraspinatus tendon with retraction of musculotendinous junction approximately 3.5 cm. There appears to be a full thickness tear of the infraspinatus tendon. Moderate hypertrophic degenerative changes of the acromioclavicular joint with type 2 acromion. There is high signal edema and mild fluid in the bicipital groove with poor visualization of the biceps tendon in this region and the biceps is not seen inserting on to the superior labrum. I suspect a tear of the biceps tendon. Impaction of the lateral humeral head with underlying moderate marrow edema. Diffuse tearing and fraying of the superior labrum. Mild joint fluid with fluid extending into the subacromial subdeltoid bursae. Signed by Brian Anderson MD 05/25/2017 06:01 P
== END ==
LOC: M PLARAD 14:15
PROVIDERS: ATTEND Orthopaedic Surgery
DX: S46.011D Strain of muscle(s) and tendon(s) of the rotator cuff of right shoulder, subsequent encounter (principal); M25.411 Effusion, right shoulder

== ENCOUNTER → 2017-06-25 | Outpatient (CLI) | payer MEDICARE, MEDICAID ==
[2017-06-25 18:18] LABS: ALBUMIN 3.3 GM/DL (3.2-5.2); ALBUMIN/GLOBULIN RATIO 0.87 (1.00-1.93); ALKALINE PHOSPHATASE 106 U/L (45-117); ALT/SGPT 13 U/L (12-78); ANION GAP 6 MEQ/L (8-16); AST/SGOT 14 U/L (7-37); BILIRUBIN,TOTAL 0.3 MG/DL (0.2-1.0); BLOOD UREA NITROGEN 14 MG/DL (7-18); CALCIUM LEVEL 8.9 MG/DL (8.8-10.2); CARBON DIOXIDE LEVEL 29 MEQ/L (21-32); CHLORIDE LEVEL 103 MEQ/L (98-107); CHOLESTEROL LEVEL 148 MG/DL (<200); CHOLESTEROL RISK RATIO 1.897 (<5); CREATININE FOR GFR 0.91 MG/DL (0.55-1.02); GLOMERULAR FILTRATION RATE > 60.0 (>45); GLUCOSE, FASTING 313 MG/DL (80-110); HDL CHOLESTEROL 78 MG/DL (>40); LDL CHOLESTEROL 51.8 MG/DL (<100); NON-HDL-C 70 MG/DL; POTASSIUM SERUM 4.2 MEQ/L (3.5-5.1); SODIUM LEVEL 138 MEQ/L (136-145); TOTAL PROTEIN 7.1 GM/DL (6.4-8.2); TRIGLYCERIDES LEVEL 91 MG/DL (<150)
[2017-06-25 18:25] LABS: TOTAL 25(OH) VITAMIN D 11.9 NG/ML (30.0-100.0)
[2017-06-25 19:40] LABS: ESTIMATED AVERAGE GLUCOSE 214 MG/DL (60-110); HEMOGLOBIN A1c 9.1 %
== END ==
LOC: M SMT 15:10
DX: E11.9 Type 2 diabetes mellitus without complications (principal); E78.00 Pure hypercholesterolemia, unspecified; I10 Essential (primary) hypertension; E55.9 Vitamin D deficiency, unspecified
CPT/HCPCS: 80053

== ENCOUNTER → 2017-09-29 | Outpatient (REF) | payer MEDICARE, MEDICAID ==
[2017-09-29 19:06] LABS: ALBUMIN 3.5 GM/DL (3.2-5.2); ALBUMIN/GLOBULIN RATIO 0.92 (1.00-1.93); ALKALINE PHOSPHATASE 89 U/L (45-117); ALT/SGPT 17 U/L (12-78); ANION GAP 7 MEQ/L (8-16); AST/SGOT 20 U/L (7-37); BILIRUBIN,TOTAL 0.4 MG/DL (0.2-1.0); BLOOD UREA NITROGEN 21 MG/DL (7-18); CALCIUM LEVEL 8.8 MG/DL (8.8-10.2); CARBON DIOXIDE LEVEL 25 MEQ/L (21-32); CHLORIDE LEVEL 104 MEQ/L (98-107); CREATININE FOR GFR 0.95 MG/DL (0.55-1.30); GLOMERULAR FILTRATION RATE > 60.0 (>45); GLUCOSE, FASTING 285 MG/DL (70-100); SODIUM LEVEL 136 MEQ/L (136-145); TOTAL PROTEIN 7.3 GM/DL (6.4-8.2)
[2017-09-29 19:17] LABS: ESTIMATED AVERAGE GLUCOSE 203 MG/DL (60-110); HEMOGLOBIN A1c 8.7 %
== END ==
LOC: M LAB REF 17:50
DX: E11.9 Type 2 diabetes mellitus without complications (principal)
CPT/HCPCS: 80053

== ENCOUNTER → 2018-09-09 | Outpatient (REF) | payer MEDICARE, MEDICAID ==
[~2018-09-09] MED LIST changes: -AMLO5TAB2 PO; +AMLO5TAB6 PO; +ASPI-1 PO; -ASPI325T PO; +IPRA0.00 NEB; -IPRASOL4 NEB; +LATA0.0013 OU; -LATA5OPD OU; +LISI40TA PO; -LISI40TAB PO; +NAPR-837 PO; -NAPR500T PO
[2018-09-09 19:44] LABS: APPEARANCE, URINE CLEAR (CLEAR); BACTERIA, URINE AUTO NEGATIVE (NEGATIVE); BILIRUBIN, URINE AUTO NEGATIVE (NEGATIVE); BLOOD, URINE BLOOD NEGATIVE (NEGATIVE); COLOR, URINE YELLOW (YELLOW); GLUCOSE, URINE (UA) AUTO 3+ mg/dL (NEGATIVE); KETONE, URINE AUTO TRACE mg/dL (NEGATIVE); LEUKOCYTE ESTERASE, URINE AUTO NEGATIVE (NEGATIVE); NITRITE, URINE AUTO NEGATIVE (NEGATIVE); PROTEIN, URINE AUTO NEGATIVE (NEGATIVE); RBC, URINE AUTO 0 /HPF (0-3); SQUAMOUS EPITHELIAL CELL UR AU 1 /HPF (0-6); UROBILINOGEN, URINE AUTO 0.2 mg/dL (0.0-2.0); WBC, URINE AUTO 1 /HPF (0-3)
[2018-09-09 19:56] LABS: ALBUMIN 3.4 GM/DL (3.2-5.2); BILIRUBIN,TOTAL 0.4 MG/DL (0.2-1.0); CALCIUM LEVEL 8.6 MG/DL (8.8-10.2); CHOLESTEROL RISK RATIO 2.428 (<5); CREATININE FOR GFR 1.14 MG/DL (0.55-1.30); GLOMERULAR FILTRATION RATE 51.6 (>45); POTASSIUM SERUM 4.1 MEQ/L (3.5-5.1); THYROID STIMULATING HORMONE 1.32 uIU/ML (0.358-3.740); TOTAL PROTEIN 6.9 GM/DL (6.4-8.2)
[2018-09-09 19:57] LABS: FOLATE 15.1 NG/ML; TOTAL 25(OH) VITAMIN D 30.3 NG/ML (30.0-100.0)
[2018-09-09 20:04] LABS: BASO % 0.4 % (0.0-1.0); EOS # 0.1 10^3/uL (0.0-0.50); HEMOGLOBIN 16.8 g/dl (12.0-15.5); HEMOGLOBIN A1c 9.7 %; LYMPH # 1.9 10^3/uL (1.5-4.5); LYMPH % 21.7 % (24.0-44.0); MEAN CORPUSCULAR HGB CONC 32.3 g/dl (32.0-36.5); MEAN CORPUSCULAR VOLUME 83.6 fl (80.0-96.0); MONO # 0.5 10^3/uL (0.0-0.8); MONO % 5.8 % (0.0-5.0); NEUTROPHILS # 6.3 10^3/uL (1.8-7.7); NEUTROPHILS % 70.9 % (36.0-66.0); PLATELET COUNT, AUTOMATED 251 10^3/uL (150-450); RED BLOOD COUNT 6.22 10^6/uL (4.00-5.40); WHITE BLOOD COUNT 8.9 10^3/uL (4.0-10.0)
[2018-09-09 20:14] LABS: CREATININE, URINE 59.2 MG/DL
== END ==
LOC: M LAB REF 18:32
PROVIDERS: ATTEND Nurse Practitioner Family
DX: Z13.9 Encounter for screening, unspecified (principal); E11.9 Type 2 diabetes mellitus without complications; I10 Essential (primary) hypertension; E78.5 Hyperlipidemia, unspecified

== ENCOUNTER → 2018-11-26 | Outpatient (CLI) | payer MEDICARE, MEDICAID ==
--- NOTE | 2018-11-29 07:24 | REP ---
REASON: Tobacco abuse. All priors were reviewed, the latest 05/06/2017. As per the protocol ,only lung window images were sent to the reading station for interpretation. The prior exam showed emphysematous changes. Once again, the lung mims are hyper and expanded and seen with small parenchymal bullae particularly in the apical region. There is evidence of early bibasilar cylindrical bronchiectasis. This represents a change from the prior exam. There is an incidental calcified granuloma in the right upper lobe. There are no abnormal nodules, masses, or opacities. IMPRESSION: Chronic lung field changes as described above. Lung RADS category 1. No abnormal nodule. Yearly CT screening is recommended as per the revised Fleischner's Society criteria. It should be stated that no gross mediastinal or hilar changes have developed since the last exam and no gross imaged upper abdomen or imaged osseous structure changes have developed since the last exam. Electronically Signed by William Huggins DO 11/29/2018 02:26 P
== END ==
LOC: M RAD 13:45
PROVIDERS: ATTEND Physician Assistant
DX: F17.218 Nicotine dependence, cigarettes, with other nicotine-induced disorders (principal); R91.8 Other nonspecific abnormal finding of lung field

== ENCOUNTER → 2018-12-07 | Outpatient (REF) | payer MEDICARE, MEDICAID ==
[2018-12-07 19:53] LABS: BASO # 0.1 10^3/uL (0.0-0.2); BASO % 0.7 % (0.0-1.0); EOS # 0.1 10^3/uL (0.0-0.50); HEMATOCRIT 51.8 % (36.0-47.0); HEMOGLOBIN 16.9 g/dl (12.0-15.5); LYMPH # 1.9 10^3/uL (1.5-4.5); LYMPH % 20.3 % (24.0-44.0); MEAN CORPUSCULAR HEMOGLOBIN 27.6 pg (27.0-33.0); MEAN CORPUSCULAR HGB CONC 32.6 g/dl (32.0-36.5); MEAN CORPUSCULAR VOLUME 84.5 fl (80.0-96.0); MONO # 0.6 10^3/uL (0.0-0.8); MONO % 6.9 % (0.0-5.0); NEUTROPHILS # 6.5 10^3/uL (1.8-7.7); NEUTROPHILS % 70.7 % (36.0-66.0); PLATELET COUNT, AUTOMATED 228 10^3/uL (150-450); RED BLOOD COUNT 6.13 10^6/uL (4.00-5.40); WHITE BLOOD COUNT 9.2 10^3/uL (4.0-10.0)
[2018-12-07 20:33] LABS: ALBUMIN 3.3 GM/DL (3.2-5.2); BILIRUBIN,TOTAL 0.5 MG/DL (0.2-1.0); CALCIUM LEVEL 9.4 MG/DL (8.8-10.2); CHOLESTEROL RISK RATIO 2.403 (<5); CREATININE FOR GFR 1.07 MG/DL (0.55-1.30); GLOMERULAR FILTRATION RATE 55.5 (>45); POTASSIUM SERUM 4.5 MEQ/L (3.5-5.1); TOTAL PROTEIN 7.4 GM/DL (6.4-8.2)
== END ==
LOC: M LAB REF 19:01
PROVIDERS: ATTEND Nurse Practitioner Family
DX: E78.5 Hyperlipidemia, unspecified (principal); E11.9 Type 2 diabetes mellitus without complications; I10 Essential (primary) hypertension

== ENCOUNTER → 2019-04-07 | Outpatient (REF) | payer MEDICARE, MEDICAID ==
[2019-04-07 17:35] LABS: BASO # 0.1 10^3/uL (0.0-0.2); BASO % 0.5 % (0.0-1.0); EOS # 0.1 10^3/uL (0.0-0.5); EOS % 0.6 % (0.0-3.0); HEMATOCRIT 51.6 % (36.0-47.0); HEMOGLOBIN 16.3 g/dl (12.0-15.5); LYMPH % 18.1 % (24.0-44.0); MEAN CORPUSCULAR HEMOGLOBIN 27.1 pg (27.0-33.0); MEAN CORPUSCULAR HGB CONC 31.6 g/dl (32.0-36.5); MEAN CORPUSCULAR VOLUME 85.7 fl (80.0-96.0); MONO # 0.7 10^3/uL (0.0-0.8); MONO % 6.2 % (0.0-5.0); NEUTROPHILS % 73.6 % (36.0-66.0); PLATELET COUNT, AUTOMATED 321 10^3/uL (150-450); RED BLOOD COUNT 6.02 10^6/uL (4.00-5.40); WHITE BLOOD COUNT 10.9 10^3/uL (4.0-10.0)
[2019-04-07 17:58] LABS: HEMOGLOBIN A1c 10.6 %
== END ==
LOC: M LAB REF 17:07
PROVIDERS: ATTEND Nurse Practitioner Family
DX: E11.9 Type 2 diabetes mellitus without complications (principal)

== ENCOUNTER → 2019-08-23 | Outpatient (REF) | payer MEDICARE, MEDICAID ==
[2019-08-23 12:01] LABS: BASO % 0.4 % (0.0-1.0); EOS # 0.1 10^3/uL (0.0-0.5); EOS % 1.6 % (0.0-3.0); HEMATOCRIT 54.1 % (36.0-47.0); HEMOGLOBIN 17.6 g/dl (12.0-15.5); LYMPH # 1.8 10^3/uL (1.5-5.0); MEAN CORPUSCULAR HEMOGLOBIN 27.7 pg (27.0-33.0); MEAN CORPUSCULAR HGB CONC 32.5 g/dl (32.0-36.5); MEAN CORPUSCULAR VOLUME 85.2 fl (80.0-96.0); MONO # 0.6 10^3/uL (0.0-0.8); MONO % 7.7 % (0.0-5.0); NEUTROPHILS # 5.6 10^3/uL (1.5-8.5); NEUTROPHILS % 67.9 % (36.0-66.0); PLATELET COUNT, AUTOMATED 199 10^3/uL (150-450); RED BLOOD COUNT 6.35 10^6/uL (4.00-5.40); WHITE BLOOD COUNT 8.3 10^3/uL (4.0-10.0)
[2019-08-23 12:38] LABS: HEMOGLOBIN A1c 9.6 %
== END ==
LOC: M LAB REF 11:35
PROVIDERS: ATTEND Nurse Practitioner Family
DX: E11.9 Type 2 diabetes mellitus without complications (principal)

== ENCOUNTER → 2020-03-19 | Outpatient (CLI) | payer MEDICARE, MEDICAID ==
[~2020-03-19] MED LIST changes: +AMLO1TAB24 PO; -AMLO5TAB6 PO; +CYCL-707 PO; -CYCL10TA PO
[2020-03-19 14:53] LABS: BASO # 0.1 10^3/uL (0.0-0.2); BASO % 0.5 % (0.0-1.0); EOS # 0.2 10^3/uL (0.0-0.5); EOS % 2.1 % (0.0-3.0); HEMATOCRIT 53.2 % (36.0-47.0); HEMOGLOBIN 16.5 g/dl (12.0-15.5); LYMPH # 2.1 10^3/uL (1.5-5.0); LYMPH % 20.2 % (24.0-44.0); MEAN CORPUSCULAR HEMOGLOBIN 26.4 pg (27.0-33.0); MEAN CORPUSCULAR VOLUME 85.3 fl (80.0-96.0); MONO # 0.6 10^3/uL (0.0-0.8); MONO % 6.2 % (0.0-5.0); NEUTROPHILS # 7.1 10^3/uL (1.5-8.5); NEUTROPHILS % 70.5 % (36.0-66.0); PLATELET COUNT, AUTOMATED 203 10^3/uL (150-450); RED BLOOD COUNT 6.24 10^6/uL (4.00-5.40); WHITE BLOOD COUNT 10.1 10^3/uL (4.0-10.0)
[2020-03-19 15:02] LABS: APPEARANCE, URINE CLEAR (CLEAR); BACTERIA, URINE AUTO 1+ (NEGATIVE); BILIRUBIN, URINE AUTO NEGATIVE (NEGATIVE); BLOOD, URINE BLOOD NEGATIVE (NEGATIVE); COLOR, URINE YELLOW (YELLOW); GLUCOSE, URINE (UA) AUTO NEGATIVE (NEGATIVE); KETONE, URINE AUTO NEGATIVE (NEGATIVE); LEUKOCYTE ESTERASE, URINE AUTO NEGATIVE (NEGATIVE); NITRITE, URINE AUTO NEGATIVE (NEGATIVE); PROTEIN, URINE AUTO NEGATIVE (NEGATIVE); RBC, URINE AUTO 0 /HPF (0-3); SPECIFIC GRAVITY URINE AUTO 1.012 (1.002-1.035); SQUAMOUS EPITHELIAL CELL UR AU 2 /HPF (0-6); WBC, URINE AUTO 3 /HPF (0-3)
[2020-03-19 15:21] LABS: BILIRUBIN,TOTAL 0.5 MG/DL (0.2-1.0); CALCIUM LEVEL 9.1 MG/DL (8.8-10.2); CHOLESTEROL RISK RATIO 2.403 (<5); CREATININE FOR GFR 1.16 MG/DL (0.55-1.30); GLOMERULAR FILTRATION RATE 50.4 (>45); TOTAL PROTEIN 7.1 GM/DL (6.4-8.2)
[2020-03-19 16:00] LABS: HEMOGLOBIN A1c 9.4 %
[2020-03-19 16:31] LABS: TOTAL 25(OH) VITAMIN D 19.9 NG/ML (30.0-100.0)
== END ==
LOC: M LAB 14:21
PROVIDERS: ATTEND Nurse Practitioner Family
DX: E55.9 Vitamin D deficiency, unspecified (principal); E66.09 Other obesity due to excess calories; I10 Essential (primary) hypertension; E78.5 Hyperlipidemia, unspecified; E11.9 Type 2 diabetes mellitus without complications; Z13.9 Encounter for screening, unspecified; Z72.0 Tobacco use

== ENCOUNTER → 2020-03-19 | Outpatient (CLI) | payer MEDICARE, MEDICAID ==
--- NOTE | 2020-03-22 09:32 | REP ---
DATE: 03/19/2020 LOW-DOSE LUNG SCREENING CT CLINICAL: History of nicotine dependence. COMPARISON: 11/26/2018 TECHNIQUE: Axial non-contrast images from the thoracic inlet to the upper abdomen using low-dose lung screening technique. FINDINGS: There is a new 5.5 mm nodule in the left apex (image 12). Underlying age-related interstitial changes noted bilaterally. No further consolidation or suspicious nodule/mass identified. No effusion. No pneumothorax. Tracheobronchial tree is patent. IMPRESSION: New 5.5 mm nodule in the left apex as compared to 2019. Findings compatible with lung RADS category 3 and 6 month follow up examination is recommended. MTDD
== END ==
LOC: M RAD 13:57
PROVIDERS: ATTEND Physician Assistant
DX: Z12.2 Encounter for screening for malignant neoplasm of respiratory organs (principal); F17.218 Nicotine dependence, cigarettes, with other nicotine-induced disorders; E55.9 Vitamin D deficiency, unspecified; E66.09 Other obesity due to excess calories; I10 Essential (primary) hypertension; E78.5 Hyperlipidemia, unspecified; E11.9 Type 2 diabetes mellitus without complications
CPT/HCPCS: 36415; 80053; 80061; 81001; 82306; 83036; 85025; G0297

== ENCOUNTER → 2020-09-10 | Outpatient (CLI) | payer MEDICARE, MEDICAID ==
[~2020-09-10] MED LIST changes: -LISI40TA PO; +LISI40TA4 PO
--- NOTE | 2020-09-10 15:42 | REP ---
INDICATION: ABN FINDING OF LUNG. COMPARISON: Low-dose lung screening chest CT dated 03/19/[address] dated 05/06/2017. TECHNIQUE: The study is performed without IV contrast. Images are presented at lung windowing only. FINDINGS: On the 03/19/2020 study a new 5 mm nodule is identified in the apex of the left upper lobe posteriorly. Current study is for follow-up of this lung nodule. On the study today the nodule is again identified measuring 5 mm, however, the nodule has decreased in density and now has more the appearance of a ground-glass density rather than a solid nodule. The lack of interval size change together with the decreased in density recasted arises this nodule has a category 2 lung nodule with the probability of malignancy less than 1%. There are no other lung nodules or masses. There are no infiltrates or pleural effusions. There are thin curvilinear densities in the left lower lobe compatible with scarring/atelectasis. IMPRESSION: The left upper lobe lung nodule is recategorized as a category 2 lung nodule, the probability of malignancy is less than 1%. Annual follow-up low-dose lung screening chest CT is recommended. <Electronically signed by Brian Carrasco > 09/10/20 [id number]
== END ==
LOC: M RAD 14:42
PROVIDERS: ATTEND Physician Assistant
DX: R91.8 Other nonspecific abnormal finding of lung field (principal)

== ENCOUNTER → 2021-04-01 | Outpatient (REF) | payer MEDICARE, MEDICAID ==
[2021-04-01 17:33] LABS: BASO # 0.1 10^3/uL (0.0-0.2); BASO % 0.5 % (0.0-1.0); EOS # 0.2 10^3/uL (0.0-0.5); HEMATOCRIT 55.7 % (36.0-47.0); HEMOGLOBIN 17.4 g/dl (12.0-15.5); LYMPH # 2.4 10^3/uL (1.5-5.0); LYMPH % 22.5 % (24.0-44.0); MEAN CORPUSCULAR HEMOGLOBIN 27.4 pg (27.0-33.0); MEAN CORPUSCULAR HGB CONC 31.2 g/dl (32.0-36.5); MEAN CORPUSCULAR VOLUME 87.7 fl (80.0-96.0); MONO # 0.6 10^3/uL (0.0-0.8); MONO % 5.9 % (2.0-8.0); NEUTROPHILS # 7.4 10^3/uL (1.5-8.5); NEUTROPHILS % 68.6 % (36.0-66.0); PLATELET COUNT, AUTOMATED 197 10^3/uL (150-450); RED BLOOD COUNT 6.35 10^6/uL (4.00-5.40); WHITE BLOOD COUNT 10.8 10^3/uL (4.0-10.0)
[2021-04-01 17:50] LABS: APPEARANCE, URINE HAZY (CLEAR); BACTERIA, URINE AUTO NEGATIVE (NEGATIVE); BILIRUBIN, URINE AUTO NEGATIVE (NEGATIVE); BLOOD, URINE BLOOD 1+ (NEGATIVE); COLOR, URINE YELLOW (YELLOW); GLUCOSE, URINE (UA) AUTO NEGATIVE (NEGATIVE); KETONE, URINE AUTO NEGATIVE (NEGATIVE); LEUKOCYTE ESTERASE, URINE AUTO NEGATIVE (NEGATIVE); MUCUS, URINE SMALL (NEGATIVE); NITRITE, URINE AUTO NEGATIVE (NEGATIVE); PROTEIN, URINE AUTO 2+ mg/dL (NEGATIVE); RBC, URINE AUTO 0 /HPF (0-3); SPECIFIC GRAVITY URINE AUTO 1.018 (1.002-1.035); SQUAMOUS EPITHELIAL CELL UR AU 3 /HPF (0-6); WBC, URINE AUTO 2 /HPF (0-3)
[2021-04-01 18:37] LABS: ALBUMIN 3.1 GM/DL (3.2-5.2); BILIRUBIN,TOTAL 0.6 MG/DL (0.2-1.0); CALCIUM LEVEL 9.4 MG/DL (8.8-10.2); CHOLESTEROL RISK RATIO 2.642 (<5); CREATININE FOR GFR 1.11 MG/DL (0.55-1.30); GLOMERULAR FILTRATION RATE 52.7 (>45); POTASSIUM SERUM 4.3 MEQ/L (3.5-5.1)
[2021-04-01 20:22] LABS: HEMOGLOBIN A1c 8.8 %
== END ==
LOC: M LAB REF 16:57
PROVIDERS: ATTEND Nurse Practitioner Family
DX: N39.0 Urinary tract infection, site not specified (principal); E11.65 Type 2 diabetes mellitus with hyperglycemia

== ENCOUNTER → 2022-07-08 | Outpatient (REF) | payer MEDICARE, MEDICAID ==
[2022-07-08 17:24] LABS: BASO # 0.1 10^3/uL (0.0-0.2); BASO % 0.5 % (0.0-1.0); EOS # 0.1 10^3/uL (0.0-0.5); EOS % 0.9 % (0.0-3.0); HEMATOCRIT 51.2 % (36.0-47.0); HEMOGLOBIN 16.5 g/dl (12.0-15.5); LYMPH # 2.5 10^3/uL (1.5-5.0); LYMPH % 22.4 % (24.0-44.0); MEAN CORPUSCULAR HGB CONC 32.2 g/dl (32.0-36.5); MEAN CORPUSCULAR VOLUME 86.9 fl (80.0-96.0); MONO # 0.6 10^3/uL (0.0-0.8); MONO % 5.4 % (2.0-8.0); NEUTROPHILS # 7.9 10^3/uL (1.5-8.5); NEUTROPHILS % 70.5 % (36.0-66.0); PLATELET COUNT, AUTOMATED 211 10^3/uL (150-450); RED BLOOD COUNT 5.89 10^6/uL (4.00-5.40); WHITE BLOOD COUNT 11.2 10^3/uL (4.0-10.0)
[2022-07-08 17:53] LABS: ALBUMIN 3.5 G/DL (3.2-5.2); ALKALINE PHOSPHATASE 92 U/L (46-116); ALT/SGPT 18 U/L (7.0-40); AST/SGOT 21 U/L (<34); BILIRUBIN,TOTAL 0.5 MG/DL (0.3-1.2); BLOOD UREA NITROGEN 18 MG/DL (9-23); CARBON DIOXIDE LEVEL 25 MMOL/L (20-31); CHLORIDE LEVEL 102 MMOL/L (98-107); CHOLESTEROL LEVEL 147 MG/DL (<200); CHOLESTEROL RISK RATIO 2.87 (<5); CREATININE FOR GFR 0.97 MG/DL (0.55-1.30); GLOMERULAR FILTRATION RATE > 60.0 (>45); GLUCOSE, FASTING 159 MG/DL (74-106); HDL CHOLESTEROL 51.2 MG/DL (>40); LDL CHOLESTEROL 62.4 MG/DL (<100); NON-HDL-C 96 MG/DL; POTASSIUM SERUM 4.5 MMOL/L (3.5-5.1); SODIUM LEVEL 136 MMOL/L (136-145); TOTAL 25(OH) VITAMIN D 19.4 NG/ML (20.0-100.0); TOTAL PROTEIN 6.8 G/DL (5.7-8.2); TRIGLYCERIDES LEVEL 167 MG/DL (<150)
[2022-07-08 17:55] LABS: THYROID STIMULATING HORMONE 1.861 uIU/ML (0.55-4.78)
[2022-07-08 19:54] LABS: HEMOGLOBIN A1c 9.3 % (4.0-6.0)
== END ==
LOC: M LAB REF 16:26
PROVIDERS: ATTEND Nurse Practitioner Family
DX: Z13.228 Encounter for screening for other metabolic disorders (principal); Z79.899 Other long term (current) drug therapy

== ENCOUNTER → 2022-09-30 | Outpatient (REF) | payer MEDICARE, MEDICAID ==
[2022-09-30 17:24] LABS: HEMOGLOBIN A1c 9.8 % (4.0-6.0)
[2022-09-30 17:40] LABS: CHOLESTEROL RISK RATIO 2.93 (<5); HDL CHOLESTEROL 47.7 MG/DL (>40); LDL CHOLESTEROL 55.7 MG/DL (<100); NON-HDL-C 92.3 MG/DL
== END ==
LOC: M LAB REF 16:11
PROVIDERS: ATTEND Nurse Practitioner Family
DX: Z13.228 Encounter for screening for other metabolic disorders (principal); E78.5 Hyperlipidemia, unspecified; E11.65 Type 2 diabetes mellitus with hyperglycemia

== ENCOUNTER → 2022-11-26 | Outpatient (CLI) | payer MEDICARE, MEDICAID | LOC: M RAD 12:59 | PROVIDERS: ATTEND Physician Assistant | DX: R91.1 Solitary pulmonary nodule (principal); J43.2 Centrilobular emphysema; I25.10 Atherosclerotic heart disease of native coronary artery without angina pectoris ==

== ENCOUNTER → 2023-01-14 | Outpatient (REF) | payer MEDICARE, MEDICAID ==
[2023-01-14 17:32] LABS: HEMOGLOBIN A1c 7.8 % (4.0-6.0)
[2023-01-14 17:43] LABS: ALBUMIN 3.4 G/DL (3.2-5.2); BILIRUBIN,TOTAL 0.5 MG/DL (0.3-1.2); CHOLESTEROL RISK RATIO 2.89 (<5); CREATININE FOR GFR 1.05 MG/DL (0.55-1.30); HDL CHOLESTEROL 41.4 MG/DL (>40); NON-HDL-C 78.6 MG/DL; POTASSIUM SERUM 5.1 MMOL/L (3.5-5.1); TOTAL PROTEIN 6.7 G/DL (5.7-8.2)
[2023-01-14 17:44] LABS: CREATININE, URINE 84.9 MG/DL
[2023-01-14 17:45] LABS: MAU/CREAT RATIO 37.6 MCG/MG (0.0-30.0)
== END ==
LOC: M LAB REF 16:31
PROVIDERS: ATTEND Nurse Practitioner Family
DX: E11.9 Type 2 diabetes mellitus without complications (principal); E78.5 Hyperlipidemia, unspecified

== ENCOUNTER → 2023-07-27 | Outpatient (REF) | payer MEDICARE, MEDICAID ==
[2023-07-27 18:02] LABS: HEMOGLOBIN A1c 8.3 % (4.0-6.0)
[2023-07-27 18:10] LABS: ALBUMIN 3.4 G/DL (3.2-5.2); ALKALINE PHOSPHATASE 96 U/L (46-116); ALT/SGPT 11 U/L (7.0-40); AST/SGOT 12 U/L (<34); BILIRUBIN,TOTAL 0.4 MG/DL (0.3-1.2); BLOOD UREA NITROGEN 19 MG/DL (9-23); CALCIUM LEVEL 9.6 MG/DL (8.3-10.6); CARBON DIOXIDE LEVEL 27 MMOL/L (20-31); CHLORIDE LEVEL 100 MMOL/L (98-107); CREATININE FOR GFR 0.96 MG/DL (0.55-1.30); GLOMERULAR FILTRATION RATE > 60.0 (>45); GLUCOSE, FASTING 201 MG/DL (74-106); POTASSIUM SERUM 4.8 MMOL/L (3.5-5.1); SODIUM LEVEL 134 MMOL/L (136-145); TOTAL PROTEIN 6.9 G/DL (5.7-8.2)
== END ==
LOC: M LAB REF 16:32
PROVIDERS: ATTEND Nurse Practitioner Family
DX: E11.9 Type 2 diabetes mellitus without complications (principal)

== ENCOUNTER → 2023-10-20 | Outpatient (REF) | payer MEDICARE, MEDICAID ==
[2023-10-20 18:30] LABS: BASO % 0.4 % (0.0-1.0); EOS # 0.1 10^3/uL (0.0-0.5); EOS % 1.3 % (0.0-3.0); HEMATOCRIT 51.8 % (36.0-47.0); HEMOGLOBIN 16.6 g/dl (12.0-15.5); LYMPH # 2.1 10^3/uL (1.5-5.0); LYMPH % 21.6 % (24.0-44.0); MEAN CORPUSCULAR HEMOGLOBIN 28.1 pg (27.0-33.0); MEAN CORPUSCULAR VOLUME 87.8 fl (80.0-96.0); MONO # 0.6 10^3/uL (0.0-0.8); MONO % 5.7 % (2.0-8.0); NEUTROPHILS # 6.9 10^3/uL (1.5-8.5); NEUTROPHILS % 70.6 % (36.0-66.0); PLATELET COUNT, AUTOMATED 181 10^3/uL (150-450); WHITE BLOOD COUNT 9.8 10^3/uL (4.0-10.0)
[2023-10-20 18:47] LABS: HEMOGLOBIN A1c 7.2 % (4.0-6.0)
[2023-10-20 18:57] LABS: ALBUMIN 3.3 G/DL (3.2-5.2); ALKALINE PHOSPHATASE 90 U/L (46-116); ALT/SGPT 15 U/L (7.0-40); AST/SGOT 15 U/L (<34); BILIRUBIN,TOTAL 0.4 MG/DL (0.3-1.2); BLOOD UREA NITROGEN 17 MG/DL (9-23); CALCIUM LEVEL 9.3 MG/DL (8.3-10.6); CARBON DIOXIDE LEVEL 28 MMOL/L (20-31); CHLORIDE LEVEL 105 MMOL/L (98-107); CHOLESTEROL LEVEL 130 MG/DL (<200); CREATININE FOR GFR 0.85 MG/DL (0.55-1.30); GLOMERULAR FILTRATION RATE > 60.0 (>45); GLUCOSE, FASTING 99 MG/DL (74-106); LDL CHOLESTEROL 61.4 MG/DL (<100); SODIUM LEVEL 139 MMOL/L (136-145); TOTAL PROTEIN 6.7 G/DL (5.7-8.2); TRIGLYCERIDES LEVEL 93 MG/DL (<150)
== END ==
LOC: M LAB REF 17:34
PROVIDERS: ATTEND Nurse Practitioner Family
DX: E11.9 Type 2 diabetes mellitus without complications (principal); E55.9 Vitamin D deficiency, unspecified; E78.5 Hyperlipidemia, unspecified; E66.01 Morbid (severe) obesity due to excess calories

== ENCOUNTER → 2024-01-22 | Outpatient (CLI) | payer MEDICARE, MEDICAID | LOC: M RAD 14:47 | PROVIDERS: ATTEND Physician Assistant | DX: Z12.2 Encounter for screening for malignant neoplasm of respiratory organs (principal); F17.218 Nicotine dependence, cigarettes, with other nicotine-induced disorders ==

== ENCOUNTER → 2024-02-24 | Outpatient (REF) | payer MEDICARE, MEDICAID ==
[2024-02-24 19:21] LABS: ALBUMIN 2.9 G/DL (3.2-5.2); BILIRUBIN,TOTAL 0.4 MG/DL (0.3-1.2); CALCIUM LEVEL 9.5 MG/DL (8.3-10.6); CREATININE FOR GFR 1.32 MG/DL (0.55-1.30); GLOMERULAR FILTRATION RATE 42.9 (>45); POTASSIUM SERUM 4.3 MMOL/L (3.5-5.1); TOTAL PROTEIN 6.3 G/DL (5.7-8.2)
[2024-02-24 19:31] LABS: HEMOGLOBIN A1c 7.6 % (4.0-6.0)
== END ==
LOC: M LAB REF 16:24
PROVIDERS: ATTEND Nurse Practitioner Family
DX: E11.9 Type 2 diabetes mellitus without complications (principal)

== ENCOUNTER → 2024-03-18 | Outpatient (REF) | payer MEDICARE, MEDICAID ==
[2024-03-18 17:47] LABS: CREATININE, URINE 114.8 MG/DL; MAU/CREAT RATIO 136.7 MCG/MG (0.0-30.0)
[2024-03-18 18:13] LABS: BILIRUBIN,TOTAL 0.4 MG/DL (0.3-1.2); CALCIUM LEVEL 9.6 MG/DL (8.3-10.6); CREATININE FOR GFR 1.07 MG/DL (0.55-1.30); GLOMERULAR FILTRATION RATE 54.6 (>45); POTASSIUM SERUM 4.2 MMOL/L (3.5-5.1); TOTAL PROTEIN 6.7 G/DL (5.7-8.2)
== END ==
LOC: M LAB REF 16:10
PROVIDERS: ATTEND Nurse Practitioner Family
DX: E11.9 Type 2 diabetes mellitus without complications (principal); R94.4 Abnormal results of kidney function studies

== ENCOUNTER → 2024-03-25 | Outpatient (REF) | payer MEDICARE, MEDICAID | LOC: M LAB REF 11:51 | PROVIDERS: ATTEND Pediatrics | DX: R39.11 Hesitancy of micturition (principal) ==

== ENCOUNTER → 2024-06-22 | Outpatient (REF) | payer MEDICARE, MEDICAID ==
[2024-06-22 17:30] LABS: HEMOGLOBIN A1c 6.7 % (4.0-6.0)
[2024-06-22 17:33] LABS: ALBUMIN 3.3 G/DL (3.2-5.2); ALKALINE PHOSPHATASE 85 U/L (35-104); ALT/SGPT 14 U/L (7.0-40); AST/SGOT 15 U/L (<34); BILIRUBIN,TOTAL 0.5 MG/DL (0.3-1.2); BLOOD UREA NITROGEN 20 MG/DL (9-23); CALCIUM LEVEL 9.3 MG/DL (8.3-10.6); CARBON DIOXIDE LEVEL 28 MMOL/L (20-31); CHLORIDE LEVEL 104 MMOL/L (98-107); CREATININE FOR GFR 0.94 MG/DL (0.55-1.30); GLOMERULAR FILTRATION RATE > 60.0 (>45); GLUCOSE, FASTING 90 MG/DL (74-106); POTASSIUM SERUM 4.4 MMOL/L (3.5-5.1); SODIUM LEVEL 140 MMOL/L (136-145); TOTAL PROTEIN 6.9 G/DL (5.7-8.2)
== END ==
LOC: M LAB REF 16:24
PROVIDERS: ATTEND Nurse Practitioner Family
DX: E11.9 Type 2 diabetes mellitus without complications (principal)

== ENCOUNTER → 2024-10-25 | Outpatient (REF) | payer MEDICARE, MEDICAID ==
[~2024-10-25] MED LIST changes: +AMLO-751 PO; -AMLO10TA PO
[2024-10-25 18:32] LABS: BASO % 0.3 % (0.0-1.0); EOS # 0.1 10^3/uL (0.0-0.5); EOS % 1.4 % (0.0-3.0); HEMATOCRIT 50.2 % (36.0-47.0); LYMPH # 2.2 10^3/uL (1.5-5.0); LYMPH % 24.6 % (24.0-44.0); MEAN CORPUSCULAR HEMOGLOBIN 27.9 pg (27.0-33.0); MEAN CORPUSCULAR HGB CONC 31.9 g/dl (32.0-36.5); MEAN CORPUSCULAR VOLUME 87.6 fl (80.0-96.0); MONO # 0.6 10^3/uL (0.0-0.8); MONO % 6.2 % (2.0-8.0); NEUTROPHILS % 67.2 % (36.0-66.0); PLATELET COUNT, AUTOMATED 205 10^3/uL (150-450); RED BLOOD COUNT 5.73 10^6/uL (4.00-5.40)
[2024-10-25 18:37] LABS: ALBUMIN 3.4 G/DL (3.2-5.2); BILIRUBIN,TOTAL 0.4 MG/DL (0.3-1.2); CALCIUM LEVEL 9.7 MG/DL (8.3-10.6); CHOLESTEROL RISK RATIO 2.94 (<5); CREATININE FOR GFR 0.91 MG/DL (0.55-1.30); GLOMERULAR FILTRATION RATE 69.2 (>45); HDL CHOLESTEROL 50.9 MG/DL (>40); LDL CHOLESTEROL 74.3 MG/DL (<100); NON-HDL-C 99.1 MG/DL; POTASSIUM SERUM 4.5 MMOL/L (3.5-5.1); TOTAL PROTEIN 6.9 G/DL (5.7-8.2)
[2024-10-25 18:39] LABS: THYROID STIMULATING HORMONE 3.551 uIU/ML (0.55-4.78)
[2024-10-25 18:49] LABS: HEMOGLOBIN A1c 6.3 % (4.0-6.0)
[2024-10-25 19:04] LABS: CREATININE, URINE 98.1 MG/DL
== END ==
LOC: M LAB REF 17:33
PROVIDERS: ATTEND Nurse Practitioner Family
DX: E11.9 Type 2 diabetes mellitus without complications (principal); E66.3 Overweight; E55.9 Vitamin D deficiency, unspecified

== ENCOUNTER → 2025-02-16 | Outpatient (CLI) | payer MEDICARE, MEDICAID ==
[~2025-02-16] MED LIST changes: +LISI40TA10 PO; -LISI40TA4 PO
== END ==
LOC: M RAD 13:17
PROVIDERS: ATTEND Physician Assistant
DX: Z12.2 Encounter for screening for malignant neoplasm of respiratory organs (principal); F17.218 Nicotine dependence, cigarettes, with other nicotine-induced disorders; R91.8 Other nonspecific abnormal finding of lung field; J43.2 Centrilobular emphysema; I25.10 Atherosclerotic heart disease of native coronary artery without angina pectoris; Z95.5 Presence of coronary angioplasty implant and graft

== ENCOUNTER → 2025-02-24 | Outpatient (REF) | payer MEDICARE, MEDICAID ==
[2025-02-24 17:40] LABS: BASO # 0.0 10^3/uL (0.0-0.2); BASO % 0.4 % (0.0-1.0); EOS # 0.2 10^3/uL (0.0-0.5); EOS % 1.9 % (0.0-3.0); LYMPH # 1.7 10^3/uL (1.5-5.0); LYMPH % 19.8 % (24.0-44.0); MONO # 0.6 10^3/uL (0.0-0.8); MONO % 7.6 % (2.0-8.0); NEUTROPHILS # 5.9 10^3/uL (1.5-8.5); NEUTROPHILS % 70.1 % (36.0-66.0); PLATELET COUNT, AUTOMATED 192 10^3/uL (150-450)
[2025-02-24 18:22] LABS: ESTIMATED AVERAGE GLUCOSE 134.0 MG/DL (60-110)
[2025-02-24 18:39] LABS: CREATININE, URINE 91.5 MG/DL; MALB URINE SIEMENS 75.0 MG/L; MAU/CREAT RATIO 81.9 MCG/MG (0.0-30.0)
== END ==
LOC: M LAB REF 16:24
PROVIDERS: ATTEND Nurse Practitioner Family
DX: R80.9 Proteinuria, unspecified (principal); Z79.4 Long term (current) use of insulin; D58.2 Other hemoglobinopathies